=== PATIENT | male | born 1960 | race Caucasian/White ===

== ENCOUNTER → 2023-07-12 | Outpatient (CLI) | payer MEDICARE, OTHER, SELFPAY ==
[2023-07-12 16:19] LABS: Absolute Lymphocyte Count 2.01 X10^3/uL (0.83-4.51); Absolute Neutrophil Count 5.1 X10^3/uL (2.0-7.7); Basophil# 0.07 X10^3/uL; Basophil% 0.9 % (0-1); Eosinophil# 0.09 X10^3/uL; Eosinophils% 1.1 % (0-5); Hematocrit 44.8 % (40-54); Hemoglobin 14.6 g/dL (13.0-16.5); Lymphocyte # 2.01 X10^3/ul (0.83-4.51); Lymphocyte % 25.5 % (19-41); Mean Corp Hgb Conc 32.6 g/dL (32-36); Mean Corpuscular Hgb 28.1 pg (27.0-32.0); Mean Corpuscular Volume 86.2 fL (80-94); Mean Platelet Vol. 10.3 fl (6.2-12.0); Monocyte# 0.55 X10^3/uL; NRBC Flagged by Analyzer 0 % (0-5); Neutrophil # 5.12 X10^3/uL (2.7-7.7); Platelet Count 263 K/mm3 (150-450); RBC Distribution Width SD 40.3 fl (35.1-43.9); White Blood Count 7.9 K/mm3 (4.4-11.0)
[2023-07-12 17:15] LABS: AST(SGOT) 15 U/L (15-37); Alanine Aminotransfer ALT/SGPT 26 U/L (16-61); Albumin, Serum 3.9 g/dL (3.2-5.0); Alkaline Phosphatase 76 U/L (45-117); Anion Gap 3 (5-15); BUN 21 mg/dL (7-18); BUN/Creat Ratio 17.9 RATIO (10-20); Bilirubin, Direct 0.12 mg/dL (0.00-0.30); Calcium,Total 9.5 mg/dL (8.5-10.1); Chloride 108 mmol/L (98-107); Cholesterol 207 mg/dL (200); Creatinine, Serum 1.17 mg/dL (0.70-1.30); EST Glomerular Filtration Rate 67 mL/min (>60); Est Glom Filt Rate - Afr Amer 81 mL/min (>60); Globulin 3.3 g/dL (2.2-4.2); Glucose 105 mg/dL (74-106); High Density Lipoprotein 64 mg/dL; Magnesium 2.4 mg/dL (1.6-2.6); Potassium 4.6 mmol/L (3.5-5.1); Protein, Total 7.2 g/dL (6.4-8.2); Sodium Level 139 mmol/L (136-145); Thyroid Stim Hormone (TSH) 1.07 uIU/mL (0.358-3.74); Triglycerides 185 mg/dL; Very Low Density Lipoprotein 37 mg/dL (5-40)
== END | disposition home or self-care (01) ==
PROVIDERS: PCP Internal Medicine; Referring Provider Internal Medicine Cardiovascular Disease; Visit Provider Internal Medicine Cardiovascular Disease
DX: I48.91 Unspecified atrial fibrillation (principal); N52.9 Male erectile dysfunction, unspecified; R00.2 Palpitations
CPT/HCPCS: 36415; 80048; 80061; 80076; 83735; 84443; 85025

== ENCOUNTER → 2023-07-21 | Outpatient (CLI) | payer MEDICARE, OTHER, SELFPAY ==
--- NOTE | 2023-07-21 10:53 | ECHOD_ITS ---
Reason For Study: Afib Procedure This was a 2D Doppler, Color Flow transthoracic echocardiogram. Exam performed in department. Left Ventricle Normal LV size. Left ventricular systolic function is normal. The estimated ejection fraction is 65 %. No regional wall motion abnormalities noted. Right Ventricle Normal RV size. Normal systolic function. Atria Normal left atrium. Normal right atrium. Mitral Valve Normal mitral valve. Mild (1+) eccentric mitral valve insufficiency. Tricuspid Valve Normal tricuspid valve. Mild to moderate (1-2+) tricuspid valve insufficiency. Pulmonary artery systolic pressure is 34 mmHg. Aortic Valve Trisinus/trileaflet aortic valve. Moderate focal aortic valve thickening. Peak aortic valve gradient 43 mmHg. Mean aortic valve gradient 29 mmHg. Mild to moderate aortic stenosis. Pulmonic Valve Normal pulmonic valve. Great Vessels Normal aortic root. The pulmonary artery is normal size. Normal inferior vena cava. Pericardium/Pleural No pericardial effusion. MMode/2D Measurements & Calculations LVIDd: 5.5 cm IVSd: 1.0 cm LVOT diam: 2.8 cm LVIDs: 3.8 cm LVPWd: 1.0 cm LVOT area: 6.0 cm2 RVDd: 3.6 cm FS: 30.2 % Ao root diam: 3.8 cm LAV(MOD-bp): 41.6 ml LVAd ap4: 35.1 cm2 LAV(MOD-bp) Indexed: 19.3 ml/m2 LVLd ap4: 8.3 cm LAV(MOD-sp2): 42.0 ml EDV(MOD-sp4): 121.6 ml LAV(MOD-sp4): 40.4 ml EDV(sp4-el): 125.6 ml LVAs ap4: 19.4 cm2 LVLs ap4: 7.3 cm ESV(MOD-sp4): 44.5 ml ESV(sp4-el): 44.1 ml EF(MOD-sp4): 63.4 % EF(sp4-el): 64.9 % SV(MOD-sp4): 77.1 ml SV(sp4-el): 81.5 ml LA A4 area: 16.4 cm2 LA dimension(2D): 3.9 cm RA A4 area: 12.6 cm2 TAPSE: 2.1 cm Time Measurements MV dec time: 0.21 sec Doppler Measurements & Calculations MV E max julio: 77.7 cm/sec Lat Peak E' Julio: 8.3 cm/sec Med Peak E' Julio: 6.9 cm/sec MV A max julio: 57.2 cm/sec E/E' lat: 9.3 E/E' med: 11.2 MV E/A: 1.4 Ao V2 max: 328.2 cm/sec LV V1 max: 81.4 cm/sec MV dec slope: 375.3 cm/sec2 Ao max P.1 mmHg LV V1 max P.7 mmHg Ao V2 mean: 264.5 cm/sec LV V1 mean P.6 mmHg Ao mean P.1 mmHg LV V1 mean: 60.3 cm/sec Ao V2 VTI: 87.6 cm LV V1 VTI: 21.8 cm AV (velocity ratio): 0.25 KIANA(I,D): 1.5 cm2 KIANA(V,D): 1.5 cm2 SV(LVOT): 130.3 ml PA V2 max: 89.8 cm/sec PI end-d julio: 116.3 cm/sec TR max julio: 271.4 cm/sec TR max P.5 mmHg ECHO/Echo Complete Interpretation Summary Normal LV size. Left ventricular systolic function is normal. The estimated ejection fraction is 65 %. Moderate focal aortic valve thickening. Mean aortic valve gradient 29 mmHg. Peak aortic valve gradient 43 mmHg. Mild to moderate aortic stenosis. Ordering Physician: Marquis Bolanos Referring Physician: Pramod Jeff Performed By: Hayley Correa, RDCS, RVT
== END | disposition home or self-care (01) ==
LOC: CVS 10:52
PROVIDERS: PCP Internal Medicine; Referring Provider Internal Medicine Cardiovascular Disease; Visit Provider Internal Medicine Cardiovascular Disease
DX: R00.2 Palpitations (principal)
CPT/HCPCS: 93306

== ENCOUNTER → 2023-08-21 | Outpatient (CLI) | payer MEDICARE, OTHER, SELFPAY ==
--- NOTE | 2023-08-21 08:28 | CDU_ITS ---
Reason For Study: Carotid bruit Rt. Velocities/BP Lt. Velocities/BP Prox CCA 98.1/16.8 cm/sec. Prox CCA 89.4/14.6 cm/sec. Mid CCA 75.1/14.6 cm/sec. Mid CCA 75.1/14.6 cm/sec. Dist CCA 74/14.6 cm/sec. Dist CCA 69.6/13.5 cm/sec. Prox ICA 47.6/10.2 cm/sec. Prox ICA 50.9/13.5 cm/sec. Mid ICA 63/14.6 cm/sec. Mid ICA 93.8/25.6 cm/sec. Dist ICA 77.3/21.2 cm/sec. Dist ICA 78.4/21.2 cm/sec. Rt. ICA/CCA = 1.03. Lt. ICA/CCA = 1.25. Prox ECA 53.1/5.8 cm/sec. Prox ECA 64.1/4.7 cm/sec. Rt. Vert. 79.8/11.3 cm/sec. Lt. Vert. 44.3/12.4 cm/sec. Right Extracranial There is intimal thickening but no significant atherosclerotic plaque noted in the right common carotid artery. There is homogeneous, smooth atherosclerotic plaque noted in the right internal carotid artery. There is heterogeneous, irregular atherosclerotic plaque noted in the right external carotid artery. Antegrade flow is noted in the right vertebral artery. Left Extracranial There is homogeneous, smooth atherosclerotic plaque noted in the left common carotid artery. There is homogeneous, smooth atherosclerotic plaque noted in the left internal carotid artery. There is intimal thickening but no significant atherosclerotic plaque noted in the left external carotid artery. Antegrade flow is noted in the left vertebral artery. Procedure Carotid Duplex 13176. This is a Carotid Duplex examination using B-mode, color flow and specral Doppler. Exam performed in department. VL/Carotid Duplex Ultrasound Interpretation Summary Minimal smooth plaque bilateral internal carotid arteries with less than 50% st enosis Less than 50% stenosis bilateral external carotid arteries Patent antegrade vertebral arteries bilaterally Ordering Physician: Pramod Ponce Referring Physician: Pramod Ponce Performed By: Cristina Srinivasan RVT
== END | disposition home or self-care (01) ==
LOC: CVS 08:26
PROVIDERS: PCP Internal Medicine; Visit Provider Internal Medicine
DX: R09.89 Other specified symptoms and signs involving the circulatory and respiratory systems (principal)
CPT/HCPCS: 93880

== ENCOUNTER 2023-10-05 12:11 | Emergency (ER) | payer MEDICARE, OTHER, SELFPAY ==
[2023-10-05 12:13] VITALS: BP 129/73; PULSE 160; RESP 14; TEMP 36.5; O2SAT 98; BMI 28.4
--- NOTE | 2023-10-05 12:17 | EKG12_ITS ---
Test Reason : DYSRHYTHMIA Blood Pressure : / mmHG Vent. Rate : 162 BPM Atrial Rate : 000 BPM P-R Int : 000 ms QRS Dur : 086 ms QT Int : 292 ms P-R-T Axes : 000 012 021 degrees QTc Int : 479 ms Critical Test Result: High HR Supraventricular tachycardia Nonspecific ST abnormality Abnormal ECG Confirmed by NAIMA OCONNELL, SUPA ([id number]), web content editor OLI SANCHEZ ([id number]) on 10/06/2023 9:36:25 AM Referred By: Confirmed By:SUPA MCNAMARA MD
--- NOTE | 2023-10-05 12:17 | RAD_ITS ---
STUDY: X-RAY CHEST REASON FOR EXAM: Male, 63 years old. Weakness. History of aortic stenosis. TECHNIQUE: Frontal view of the chest COMPARISON: None. FINDINGS: The lungs are clear. There are no pleural effusions. There is no pneumothorax. The heart is normal in size. The visualized osseous structures are within normal limits. RAD/Chest 1 View (Portable) IMPRESSION: No acute thoracic pathology. Electronically Signed: Marquise Mc MD at 13:38 EDT ,
--- NOTE | 2023-10-05 12:17 | CT_ITS ---
STUDY: CTA HEAD AND NECK WITH CONTRAST REASON FOR EXAM: Male, 63 years old. aphasia RADIATION DOSAGE (If Supplied By Facility): CTDIvol = ( 32.35 ) mGy, DLP = ( 1568.84 ) mGycm TECHNIQUE: CT angiography was performed with a multi-detector CT scanner. Data acquisition was obtained from the skull base through the vertex following intravenous administration of [id number] 100ML. MIP images were reconstructed from the axial data set. Post-processing of the angiographic images was performed, with multiplanar reformation and 3D reconstruction. Individualized dose optimization techniques were used for this CT. COMPARISON: No relevant priors. FINDINGS: Normal bilateral petrous carotid arteries. Normal right cavernous carotid artery with a normal supraclinoid bifurcation. Normal left cavernous carotid artery with a normal supraclinoid bifurcation. Normal right A1 segments of the anterior cerebral artery. Normal left A1 segments of the anterior cerebral artery. Normal intact anterior communicating artery (ACOM). Normal bilateral A2 segments of the anterior cerebral arteries. Normal right M1 and M2 segments of the middle cerebral arteries, with a normal M1 bifurcation. Normal left M1 and M2 segments of the middle cerebral arteries, with a normal M1 bifurcation. Normal right posterior communicating artery (PCOM). Normal left posterior communicating artery (PCOM). Normal bilateral vertebral arteries. Normal basilar artery with a normal basilar bifurcation. The visualized bilateral superior cerebellar (SCA) arteries are normal. Normal bilateral P1, P2 and visualized P3 segments of the posterior cerebral arteries. There is no demonstrated aneurysm of the north fork of Ruggiero. There is no demonstrated abnormality of the visualized brain. AORTIC ARCH: Normal visualized aortic arch. Normal origins of the brachiocephalic, left common carotid, and left subclavian arteries. RIGHT CAROTID ARTERIES: Normal right common carotid artery (CCA). Normal right common carotid bulb. Normal origin of the right internal carotid (ICA) artery without a hemodynamically significant stenosis. Normal visualized cervical portion of the right internal carotid artery. Normal origin of the right external carotid artery (ECA). LEFT CAROTID ARTERIES: Normal left common carotid artery (CCA). Normal left common carotid bulb. Normal origin of the left internal carotid (ICA) artery without a hemodynamically significant stenosis. Normal visualized cervical portion of the left internal carotid artery. Normal origin of the left external carotid artery (ECA). VERTEBRAL ARTERIES: Normal bilateral vertebral arteries. No suspicious enhancing lesion, airway narrowing or deviation. Multiple thyroid nodules are noted, dedicated thyroid ultrasound recommended unless recently performed. Lung apices are clear CT/CTA Head AND Neck W/ Contrast IMPRESSION: Normal CTA Head and neck with contrast. Thyroid nodules Electronically Signed: Jose Dasilva MD at 13:25 EDT ,
[2023-10-05] MEDS: Metoprolol Tartrate 5 MG/5 ML Vial IV (12:26)
[2023-10-05] MEDS: 0.9% Normal Saline (1000mL) 1,000 ML 250 ML IV (12:26)
[2023-10-05 12:27] LABS: Absolute Lymphocyte Count 2.33 X10^3/uL (0.83-4.51); Absolute Neutrophil Count 8.5 X10^3/uL (2.0-7.7); Basophil# 0.08 X10^3/uL; Basophil% 0.7 % (0-1); Eosinophil# 0.06 X10^3/uL; Eosinophils% 0.5 % (0-5); Hematocrit 45.3 % (40-54); Hemoglobin 14.9 g/dL (13.0-16.5); Lymphocyte # 2.33 X10^3/ul (0.83-4.51); Lymphocyte % 19.4 % (19-41); Mean Corp Hgb Conc 32.9 g/dL (32-36); Mean Corpuscular Volume 85.2 fL (80-94); Mean Platelet Vol. 10.2 fl (6.2-12.0); Monocyte# 0.93 X10^3/uL; Monocyte% 7.8 % (0-10); NRBC Flagged by Analyzer 0 % (0-5); Neutrophil # 8.52 X10^3/uL (2.7-7.7); Neutrophil % 71.1 % (47-70); Platelet Count 224 K/mm3 (150-450); RBC Distribution Width SD 40.3 fl (35.1-43.9); Red Blood Count 5.32 M/mm3 (4.6-6.2)
--- NOTE | 2023-10-05 12:31 | EKG12_ITS ---
Test Reason : CONVERTED RHYTHM Blood Pressure : / mmHG Vent. Rate : 067 BPM Atrial Rate : 067 BPM P-R Int : 170 ms QRS Dur : 084 ms QT Int : 386 ms P-R-T Axes : 049 015 027 degrees QTc Int : 407 ms Normal sinus rhythm Normal ECG Confirmed by SUPA MCNAMARA MD ([id number]), digital editor OLI SANCHEZ ([id number]) on 10/06/2023 9:36:35 AM Referred By: JEFFERY Confirmed By:SUPA MCNAMARA MD
--- NOTE | 2023-10-05 12:34 | EX.ED.DYSGE1 ---
HPI History of Present Illness Chief Complaint: Neuro S/Sx Informant: patient and spouse/S.O. Narrative Narrative: 63-year-old male presenting to the emergency room stating I am having a stroke. He states symptoms began in the last 30 minutes. He states that he is having difficulty finding his words and saying them. Patient repeats over and over that he is having a stroke. Patient states that he was recently diagnosed with atrial fibrillation and moderate aortic stenosis. He has not had Eliquis in the past month. He states that he takes Eliquis and metoprolol on an as-needed basis. Patient denies any arm or leg symptoms. No vision changes. No facial droop. No loss of sensation. He states that he is supposed to have shoulder surgery tomorrow at [facility]. He states that he is not normally in atrial fibrillation but knows when he is in it (however he appears to be in atrial fibrillation now and does not feel it). PFSH PFS Medical History Health care maintenance Left carotid bruit Aortic stenosis Palpitations Osteoarthritis Onychomycosis Genital herpes Erectile dysfunction Home Medications ?Medication ?Instructions ?Recorded ?Last Taken ?Type metoprolol tartrate 25 mg tablet 12.5 mg (1/2 x 25 mg) PO BID #30 10/05/23 Unknown Rx tabs Allergy/AdvReac Type Severity Reaction Status Date / Time No Known Allergies Allergy Unverified 09/21/23 14:16 Family History Father Heart disease CHF (congestive heart failure) Surgical History H/O vasectomy History of amputation of finger Hx of appendectomy Social History adopted: No household members: none number of children: 4 current occupational status: retired pets and animals: Yes Smoking Status: Former smoker quit date: 04/03/79 Tobacco: How many years used: 8 alcohol intake: never substance use type: does not use caffeine: Yes (4) Type: coffee frequency: 5-6 times per week seatbelt use: always do you feel safe at home: Yes ROS ROS ED Constitutional Constitutional ED: Denies chills, fever(s) or weight loss Eyes Eyes: Denies blurry vision, change in vision or diplopia ENT ENT ED: Denies ear pain, rhinorrhea or sore throat Cardiovascular Cardiovascular: Denies chest pain, orthopnea, palpitations or racing heartbeat Respiratory/Chest Respiratory/Chest: Denies cough, dyspnea or orthopnea Gastrointestinal Gastrointestinal: Denies abdominal pain, diarrhea, nausea or vomiting Genitourinary Genitourinary ED: Denies dysuria, hematuria or urinary frequency Musculoskeletal Musculoskeletal: Reports arthralgias; Denies myalgias or neck pain Integumentary Denies abscess or rash Neurologic Neurologic: Reports other Details: Difficulty saying words I know what I want to say but it does not come out ; Denies headache(s), paresthesias or weakness Psychiatric Psychiatric: Denies anxiety, depression, suicidal ideation or suicidal thoughts Endocrine Endocrinology: Denies polydipsia, polyphagia or polyuria Allergic/Immunologic Allergic/Immunologic ED: Denies mouth swelling, tongue swelling or urticaria EXAM Physical Exam Const Vital Signs: 10/05/23 12:13 10/05/23 13:12 10/05/23 14:00 Temperature 97.7 F L Temperature Source Temporal Pulse Rate 160 H 66 63 Respiratory Rate 14 16 19 H Blood Pressure 129/73 H 112/72 116/71 Blood Pressure Mean 91 85 86 Pulse Ox 98 98 97 Oxygen Delivery Method Room Air Room Air Positive well nourished and well developed General Appearance ED: well developed HEENT Reports normocephalic, head/scalp atraumatic and moist mucous membranes Eyes PERRL and EOMs intact bilaterally Neck no lymphadenopathy, supple and no JVD Resp normal respiratory effort and clear to auscultation bilaterally Cardio regular rate and no murmurs Rate: tachycardic Rhythm: abnormal rhythm irregularly irregular GI normal to inspection, nondistended, normoactive bowel sounds and non-tender Palpation: soft Back/Spine no CVA tenderness and normal ROM Extremity normal to inspection General Extremety ED: Negative for edema General Extremity: Negative for edema Neuro oriented x3 and CN's II-XII intact bilaterally Sensorium / Orientation: alert Motor Exam: strength 5/5 throughout Psych mental status grossly normal Mood & Affect: Negative for depressed or tearful Skin no rashes or lesions noted and no wounds MDM MDM MDM Narrative Medical decision making narrative: Differential diagnosis includes but not limited to stroke TIA brain mass intracranial hemorrhage anxiety cardiac dysrhythmias electrolyte imbalance I was asked to emergently evaluate this patient while seeing another patient. The concern was what the patient was stating was that he was having a stroke. Initial NIH is 0. I can understand the patient though he stumbles over a couple words here and there. He has no difficulty on the aphasia NIH part or any dysarthria noted. Therefore with an initial NIH of 0 and no obvious stroke syndrome, I did not call a stroke team. Initial EKG shows a supraventricular tachycardia at a rate of 162 bpm. On the monitor he is showing variability between 150 and about 175. CTA head and neck is negative for acute findings. Patient is neurologically at his baseline. White count returns nonspecifically at 12 hemoglobin 14.9 platelet count of 224 creatinine 1.4 with a BUN of 22. Glucose 152. Troponin normal at 28. My independent interpretation of the chest x-ray is no acute process. Patient after 5 mg of metoprolol IV has been in a normal sinus rhythm. Again he is at neurologic baseline per him. If this was a TIA then clearly the high risk source would be his A-fib for which she is not anticoagulated. I spoke with Dr. Rosado from cardiology. Our recommendation is that he begin Eliquis. He tells me that his doctors took him off of metoprolol for having heart rates in the 40s. At that is not what I was understanding as the reason to why he was not on the metoprolol at this time. I do not feel strongly that he necessarily has to be hospitalized. His symptoms have resolved. He had recent echocardiogram carotid ultrasound CT a of head and neck and laboratory analysis. I think he needs to be anticoagulated and that is what he would be discharged from the hospital for if he had an essentially negative workup. I have encouraged him to speak with his anesthesiologist and surgeon. I do not feel that it is in his best interest to proceed with a significant surgery tomorrow. History & Record Review Discussion w/independent historian: Patient and Significant other Additional record(s) reviewed:: Prior outpatient record, Prior ED visit and Prior labs Lab Data Attestation: I reviewed the patient's lab results. Labs: Laboratory Results - last 24 hr 10/05/23 10/05/23 12:15 12:18 WBC 12.0 H RBC 5.32 Hgb 14.9 Hct 45.3 MCV 85.2 MCH 28.0 MCHC 32.9 RDW Std Deviation 40.3 RDW Coeff of Fabian 13.0 Plt Count 224 MPV 10.2 Immature Gran % (Auto) 0.500 Neut % (Auto) 71.1 H Lymph % (Auto) 19.4 Jennings % (Auto) 7.8 Eos % (Auto) 0.5 Baso % (Auto) 0.7 Absolute Neuts (auto) 8.5 H Absolute Lymphs (auto) 2.33 Nucleated RBC % 0 PT 13.1 INR 1.0 APTT 27.0 Sodium 139 Potassium 4.3 Chloride 106 Carbon Dioxide 24.0 Anion Gap 9 BUN 22 H Creatinine 1.40 H Estim Creat Clear Calc 63.01 Est GFR (MDRD) Af Amer 65 Est GFR (MDRD) Non-Af 54 L BUN/Creatinine Ratio 15.7 Glucose 152 H Calcium 9.7 Total Bilirubin 0.60 Direct Bilirubin 0.14 AST 15 ALT 19 Alkaline Phosphatase 85 Troponin I High Sens 28 Total Protein 7.4 Albumin 3.8 Globulin 3.6 POC Glucose 161 H Radiography Diagnostic Testing: Clinical Impression(s) from Imaging Studies Chest X-Ray 10/05/23 12:17 IMPRESSION: No acute thoracic pathology. Electronically Signed: Marquise Mc MD at 13:38 EDT , Head/Neck CTA 10/05/23 12:17 IMPRESSION: Normal CTA Head and neck with contrast. Thyroid nodules Electronically Signed: Jose Dasilva MD at 13:25 EDT , EKG Initial EKG: Attestation: I personally reviewed and interpreted this EKG as follows: Comments: Supraventricular tachycardia at a rate of 162 bpm. Follow-up EKG: Attestation: I personally reviewed and interpreted this EKG as follows: Comments: Sinus rhythm ventricular rate of 67 bpm. Management Discussion w/another healthcare provider: [facility] (Dr. Bolanos) Discharge Plan Triage Chief Complaint: Neuro S/Sx ED Provider: Jesus Peace Dx/Rx/DC Orders Clinical Impression: Brain TIA, Aortic stenosis, Atrial fibrillation with RVR Instructions: ED AFIB, ED TIA: Transient Ischemic Attack Prescriptions: New metoprolol tartrate 25 mg tablet 12.5 mg PO BID Qty: 30 0RF Primary Care Provider: Pramod Ponce Referrals: Marquis Bolanos MD [Med Staff - Active Staff] - As soon as possible Pramod Ponce MD [Primary Care Provider] - As soon as possible Activity Restrictions/Additional Instructions: It is strongly recommended that you be on Eliquis until your doctors removes the medication I would recommend metoprolol 12.5 mg twice a day. If you are finding that your heart rate is significantly slow on this medication please discuss it with your doctor. I strongly urged you to speak with your surgeon and anesthesiologist before tomorrow surgery regarding this. If this was a TIA today there is a high likelihood of a much larger debilitating stroke in the next 30 days. Clearly the risk factor for a stroke for you would be atrial fibrillation. This is why Eliquis would be important for you is to prevent a large stroke. I would also recommend taking an aspirin 81mg (baby aspirin) a day until cardiology ask you to discontinue this. Print Language: Persian Disposition Disposition: Home, Self Care NIHSS NIHSS 1a. Level of Consciousness: Alert; keenly responsive 1b. LOC Questions: Answers BOTH questions correctly. 1c. LOC Commands: Performs both tasks correctly. 2. Best Gaze: Normal 3. Visual: No visual loss 4. Facial Palsy: Normal symmetrical movements 5a. Left Arm: No drift; arm holds 90 (or 45) degrees for full 10 seconds 5b. Right Arm: No drift; arm holds 90 (or 45) degrees for full 10 seconds 6a. Left Leg: No drift; leg holds 30-degree position for full 5 seconds 6b. Right Leg: No drift; leg holds 30-degree position for full 5 seconds 7. Limb Ataxia: Absent 8. Sensory: Normal; no sensory loss 9. Best Language: No aphasia; normal 10. Dysarthria: Normal 11. Extinction and Inattention: No abnormality Total: 0
[2023-10-05 12:36] LABS: Prothrombin Time (Protime)PT. 13.1 SECONDS (11.7-14.9)
[2023-10-05 12:37] LABS: Bedside Glucose 161 mg/dL (74-106)
[2023-10-05 12:47] LABS: AST(SGOT) 15 U/L (15-37); Alanine Aminotransfer ALT/SGPT 19 U/L (16-61); Albumin, Serum 3.8 g/dL (3.2-5.0); Alkaline Phosphatase 85 U/L (45-117); Anion Gap 9 (5-15); BUN 22 mg/dL (7-18); BUN/Creat Ratio 15.7 RATIO (10-20); Bilirubin, Direct 0.14 mg/dL (0.00-0.30); Calcium,Total 9.7 mg/dL (8.5-10.1); Chloride 106 mmol/L (98-107); EST Glomerular Filtration Rate 54 mL/min (>60); Est Glom Filt Rate - Afr Amer 65 mL/min (>60); Estimated Creatinine Clearance 63.01 ml/min; Globulin 3.6 g/dL (2.2-4.2); Glucose 152 mg/dL (74-106); Potassium 4.3 mmol/L (3.5-5.1); Protein, Total 7.4 g/dL (6.4-8.2); Sodium Level 139 mmol/L (136-145); Troponin-I HS 28 pg/mL (3.0-78.0)
[2023-10-05 13:12] VITALS: BP 112/72; PULSE 66; RESP 16; O2SAT 98
[2023-10-05 14:00] VITALS: BP 116/71; PULSE 63; RESP 19; O2SAT 97
[2023-10-05 14:34] VITALS: BP 120/76; PULSE 77; RESP 16; TEMP 36.8; O2SAT 99
== END 2023-10-05 14:35 | disposition home or self-care (01) ==
PROVIDERS: Emergency Provider Emergency Medicine; PCP Internal Medicine; Visit Provider Emergency Medicine
DX: G45.9 Transient cerebral ischemic attack, unspecified (principal); I48.91 Unspecified atrial fibrillation; I35.0 Nonrheumatic aortic (valve) stenosis; Z79.01 Long term (current) use of anticoagulants; Z87.891 Personal history of nicotine dependence; R94.31 Abnormal electrocardiogram [ECG] [EKG]; R47.01 Aphasia; R53.1 Weakness
CPT/HCPCS: 70496; 70498; 71045; 80048; 80076; 82962; 84484; 85025; 85610; 85730; 93005; 96361; 96374; 99284; J7030; Q9967

== ENCOUNTER → 2023-11-08 | Outpatient (CLI) | payer MEDICARE, OTHER, SELFPAY ==
--- NOTE | 2023-11-08 11:40 | STRESSREP ---
Stress Test Report Exercise myocardial perfusion stress test. 63-year-old man with a history of paroxysmal atrial fibrillation Stress protocol: Resting EKG demonstrates sinus bradycardia with a rate of 52 bpm resting blood pressure is 128/78 mmHg. The patient exercised according to the regular Erick protocol for a total duration of 10 minutes and 15 seconds attaining a maximum heart rate of 123 bpm which was 79% of maximum predicted heart rate; the maximum workload was 13.4 metabolic equivalents. At rest there were no ST or T wave changes noted to suggest ischemia and at peak exercise upsloping ST changes only were noted which did not meet the criteria for ischemia. No clinical angina was noted the test was terminated due to the target heart rate being achieved/fatigue. The peak blood pressure was 160/74 mmHg. Rate-pressure product was 18,700. No atrial fibrillation was noted Myocardial perfusion protocol. 13.4 mCi of technetium 99m sestamibi was injected at rest. The patient exercised according to regular Erick protocol for total duration of 10 minutes and 15 seconds and at peak exercise 41 mCi of technetium 99m sestamibi was injected stress images were obtained stress and rest images were reconstructed in comparing the short axis vertical long and horizontal long axis. Gated images were also obtained. Perfusion SPECT analysis: Review of the stress images demonstrate normal uptake of tracer noted in all areas of the myocardium. The resting images similarly demonstrate normal uptake of tracer noted in all areas of the myocardium. No areas of reversibility are noted to suggest ischemia no previous infarct was noted. Gated SPECT analysis: The gated ejection fraction is 64%. Conclusion: Normal exercise myocardial perfusion stress test at a high workload Preserved ejection fraction.
== END | disposition home or self-care (01) ==
PROVIDERS: PCP Internal Medicine; Referring Provider Nurse Practitioner Family; Visit Provider Nurse Practitioner Family
DX: R94.31 Abnormal electrocardiogram [ECG] [EKG] (principal); I48.0 Paroxysmal atrial fibrillation; I35.0 Nonrheumatic aortic (valve) stenosis; R00.2 Palpitations
CPT/HCPCS: 78452; 93017; A9500; A4216

== ENCOUNTER 2023-12-06 12:55 | Observation (INO) | payer MEDICARE, OTHER, SELFPAY ==
[2023-12-06] VITALS (10 sets, daily range): BP systolic 110–132; BP diastolic 59–85; PULSE 60–155; RESP 15–27; TEMP 36.4–36.7; O2SAT 95–100; BMI 31.6; BMI 27.7
--- NOTE | 2023-12-06 13:00 | EKG12_ITS ---
Test Reason : Blood Pressure : / mmHG Vent. Rate : 080 BPM Atrial Rate : 080 BPM P-R Int : 182 ms QRS Dur : 090 ms QT Int : 386 ms P-R-T Axes : 046 -05 010 degrees QTc Int : 445 ms Normal sinus rhythm Normal ECG Confirmed by NAIMA OCONNELL, SUPA ([id number]), multimedia editor OLI SANCHEZ ([id number]) on 12/07/2023 1:49:16 PM Referred By: Confirmed By:SUPA MCNAMARA MD
--- NOTE | 2023-12-06 13:00 | CT_ITS ---
STUDY: CT HEAD STROKE PROTOCOL W/O CONTRAST INJECTION REASON FOR EXAM: Male, 63 years old. Neuro deficit, acute, stroke suspected RADIATION DOSAGE (If Supplied By Facility): CTDIvol = ( 44.99 ) mGy, DLP = ( 812.98 ) mGycm TECHNIQUE: Transaxial CT imaging of the brain was performed without administration of intravenous contrast material. Individualized dose optimization techniques were used for this CT. COMPARISON: Comparison is made with prior study dated October 05, 2023. FINDINGS: Normal soft tissue structures. Normal calvarium. There is mild cerebral atrophy with widening of the extra-axial spaces and ventricular dilatation. Normal white matter tracts of the cerebral hemispheres. Normal basal ganglia and thalami. Normal brainstem. Normal cerebellum. There is no intracranial hemorrhage. There are no findings of an acute ischemic infarction. Normal visualized paranasal sinuses. ASPECT score: 10 CT/STROKE Brain/Head without Cont IMPRESSION: Chronic involutional changes of the brain. N.B. : The above Results were Read Back by Gregory Love MD to Dany Hooker and understanding confirmed on 12/06/2023 13:10:56 (ET). Electronically Signed: Gregory Love MD at 13:12 EDT ,
--- NOTE | 2023-12-06 13:00 | RAD_ITS ---
STUDY: X-RAY CHEST REASON FOR EXAM: Male, 63 years old. Neuro deficit, acute, stroke suspected TECHNIQUE: Single AP portable view of the chest. COMPARISON: Comparison is made with prior study dated October 05, 2023. FINDINGS: EKG electrodes are seen. The lungs are clear and expanded. There is no demonstrated pleural abnormality. Normal size heart. Normal mediastinum and ninfa. Normal visualized pulmonary arteries. There is atherosclerotic tortuosity of the aortic arch and descending thoracic aorta. There are diffuse degenerative changes of the visualized thoracic spine. There is degenerative osteoarthritis of the bilateral shoulders. There is no demonstrated abnormality of the visualized soft tissue structures of the upper abdomen. RAD/Chest 1 View IMPRESSION: No acute abnormality is seen. Electronically Signed: Gregory Love MD at 13:51 EDT ,
--- NOTE | 2023-12-06 13:01 | ED.VIS.STROK ---
HPI History of Present Illness Chief Complaint: Stroke Alert Informant: patient Onset/Context/Timing Onset: Today Context: Sudden Onset Timing: Continuous Quality and Location: Positive for Expressive Aphasia Onset: Approximately 12:30 PM. Current Severity: Moderate Maximum Severity: Moderate Associated Symptoms Associated Symptoms: Negative for Headache, Nausea, Vomiting or Chest Pain Narrative Narrative: 63-year-old male history of prior TIA and CVA. History of A-fib on Eliquis. He takes Eliquis 5 mg twice daily and he took his last dose this morning. Around 1230 while working in his shop at home he started to have an an expressive aphasia. Denies any other symptoms. No recent illness. Prior similar symptoms: Yes Recent Illness/Hospitalization: No PFSH PFS Medical History Abnormal EKG Health care maintenance Left carotid bruit Aortic stenosis Palpitations Osteoarthritis Onychomycosis Genital herpes Erectile dysfunction Home Medications ?Medication ?Instructions ?Recorded ?Last Taken ?Type metoprolol tartrate 25 mg tablet 12.5 mg (1/2 x 25 mg) PO BID #30 10/05/23 Unknown Rx tabs apixaban 5 mg tablet (Eliquis) 5 mg PO BID #180 tabs 10/24/23 Unknown Rx metoprolol tartrate 25 mg tablet 12.5 mg (1/2 x 25 mg) PO BID 30 12/06/23 Unknown Rx days #30 tabs Allergy/AdvReac Type Severity Reaction Status Date / Time No Known Allergies Allergy Verified 12/06/23 12:59 Family History Father Heart disease CHF (congestive heart failure) Surgical History H/O vasectomy History of amputation of finger Hx of appendectomy Social History adopted: No household members: none number of children: 4 current occupational status: retired pets and animals: Yes Smoking Status: Former smoker quit date: 04/03/79 Tobacco: How many years used: 8 alcohol intake: never substance use type: does not use caffeine: Yes (4) Type: coffee frequency: 5-6 times per week seatbelt use: always do you feel safe at home: Yes ROS ROS ED ROS Narrative Expressive aphasia. Denies recent illness. No headache. Constitutional Constitutional ED: Denies chills or fever(s) Eyes Eyes: Denies blurry vision ENT ENT ED: Denies ear pain Cardiovascular Cardiovascular: Reports palpitations and racing heartbeat; Denies chest pain Respiratory/Chest Respiratory/Chest: Denies cough or dyspnea Gastrointestinal Gastrointestinal: Denies abdominal pain Genitourinary Genitourinary ED: Denies dysuria Musculoskeletal Musculoskeletal: Denies arthralgias Integumentary Denies abscess Neurologic Neurologic: Denies headache(s) Psychiatric Psychiatric: Denies anxiety or depression Endocrine Endocrinology: Denies polydipsia Hematologic/Lymphatic Hematologic/Lymphatic: Reports easy bleeding and other Details: On the blood thinner Eliquis. Allergic/Immunologic Allergic/Immunologic ED: Denies mouth swelling or urticaria EXAM Physical Exam Narrative Exam Narrative: 63-year-old male sitting upright in bed. On the monitor he is either in A-fib or a flutter rate about 155. Initial blood pressure 132/85. Pulse ox 9 9% on room air no hypoxia. Blood sugar 130. H EENT exam pupils round reactive light. No facial droop. Normal pronunciation. He does have expressive aphasia. Trouble finding the correct words. Neck nontender. Lungs clear. Heart tachycardic rate about 155. Mostly to fib flutter on the monitor. No murmur. Chest wall ribs nontender. Abdomen soft nontender. Moving all 4 extremities. 5 out of 5 knit goods washer strength. Dorsi plantarflexion intact. No drift. No edema. Nontender. Back nontender. Neurologically expressive aphasia. He is easily understood. He is pronouncing the words correctly. He just cannot put together sentences appropriately. He is awake. He is alert. He is answering questions following commands. He has normal motor strength. Normal fingertip to nose. NIH score is 1. Patient doing well on repeat exam at 2:15 PM. After he returned from [facility] did been in and their neurologist did there on exam. Agrees due to the patient being on Eliquis he is not a TNK candidate. His speech is improving. Again he is now in a sinus rhythm he spontaneously converted from A-fib RVR to spontaneous rhythm. Patient is doing well. Speech appears to be improving. I spoken to our hospitalist he will be PCU admit for stroke evaluation. Const Vital Signs: 12/06/23 12:56 12/06/23 12:59 12/06/23 13:03 Temperature 97.5 F L 97.5 F L Temperature Source Temporal Temporal Pulse Rate 155 H 155 H Respiratory Rate 27 H 19 H Blood Pressure 132/85 H 132/85 H Blood Pressure Mean 100 100 Pulse Ox 99 100 Oxygen Delivery Method Room Air Room Air Room Air 12/06/23 13:30 12/06/23 14:00 Temperature Temperature Source Pulse Rate 77 70 Respiratory Rate 16 21 H Blood Pressure 110/71 115/63 Blood Pressure Mean 84 80 Pulse Ox 98 100 Oxygen Delivery Method Room Air Positive well nourished and well developed; Negative for obese, cachectic, contractures or unkempt General Appearance ED: well developed; Negative for unkempt, cachectic, contractures or NAD Nutritional Appearance: Negative for cachectic or obese HEENT Reports moist mucous membranes atraumatic; Negative for trauma Nose: Negative for other Eyes EOMs intact bilaterally General Eye ED: Negative for pale conjunctiva, scleral icterus or other Neck no lymphadenopathy, supple and no JVD General: Negative for tenderness Thyroid: Negative for other Chest Wall inspection of chest normal and palpation of chest normal Chest: Negative for other Resp normal respiratory effort and clear to auscultation bilaterally Effort and Inspection: Negative for retractions Auscultation: Negative for rales, rhonchi, wheezes or diminished lung sounds Cardio no murmurs Rate: tachycardic Rhythm: Negative for regular rhythm GI normal to inspection, nondistended, normoactive bowel sounds, soft to palpation, non-tender, non-distended and no masses Inspection: Negative for abdominal distention Palpation: Negative for tender, guarding or rebound tenderness present Back/Spine no CVA tenderness General Back: Negative for CVA tenderness Cervical Spine: Negative for cervical spine tenderness Thoracic Spine / Upper Back: Negative for thoracic spinal tenderness Lumbar Spine / Lower Back: Negative for lumbar spinal tenderness Extremity normal to inspection General Extremety ED: Negative for deformity, edema or tenderness General Extremity: Negative for deformity or edema Neuro oriented x3 and CN's II-XII intact bilaterally Neuro Narrative: NIH score of 1 for expressive aphasia. Awake and alert. No motor loss. Sensorium / Orientation: alert, oriented to person, oriented to place and oriented to time; Negative for orientation impaired, confused, lethargic or stuporous Speech: Negative for speech normal Motor Exam: strength 5/5 throughout Psych mental status grossly normal Appearance: Negative for unkempt Attitude: No agitated Mood & Affect: Negative for depressed, anxious or tearful Skin no wounds General Skin Exam: Negative for jaundice Lesions: no lesions Rashes: no rashes Trauma: Negative for abrasion or laceration NIHSS NIHSS Initial: 1a Level of Consciousness: 0 1b LOC Questions (Score 2 if aphasic/stupor): 0 1c LOC Commands (Only score 1st attempt): 0 2 Best Gaze (If aphasic, use reflexive mvmts.): 0 3 Visual: 0 4 Facial Palsy: 0 5 Motor Arm Right (UN = amputation/fusion): 0 5 Motor Arm Left: 0 6 Motor Leg Right: 0 6 Motor Leg Left: 0 7 Limb ataxia (Only + if out of proportion): 0 8 Sensory (Aphasia/stupor=0 or 1, coma=2): 0 9 Best Language: 0 10 Dysarthria (mute, coma=2, intubated=UN): 1 11 Extinction and Inattention (only scored if +): 0 Total Score: 1 MDM MDM MDM Narrative Medical decision making narrative: 63-year-old male onset about half an hour ago of expressive aphasia. On Eliquis took it this morning. Also history of A-fib but he is in A-fib RVR currently. We placed in a stroke protocol. Most likely will not be a tenecteplase candidate due to him being on the blood thinner Eliquis. He will also receive Cardizem IV to control his heart rate. Patient returned from CAT scan his initial CT of the brain without contrast was read as unremarkable per the radiologist. Also reviewed that there is no bleed. When he returned from CAT scan he had spontaneously converted when he left he was in A-fib RVR rate in 150s. Currently is in a sinus rhythm rate in 70s. Prior to admission I had a lengthy discussion with the patient. He much preferred to be discharged to home. He understands risks and benefits. He also discussed this with his significant other that was at bedside. He chose to be discharged to home. Knows to return if worse. Will continue his metoprolol and his Eliquis. He is scheduled for an upcoming cardiac ablation for A-fib at [facility] On the . After the patient spoke to the hospitalist he did decide to do be admitted. History & Record Review Discussion w/independent historian: Patient Additional record(s) reviewed:: Prior inpatient record, Prior outpatient record, Prior ED visit and Prior labs Lab Data Attestation: I reviewed the patient's lab results. Lab results narrative: CBC shows white count of 10. H&H 15 and 45. Platelets 279. PT, INR and PTT were 14, 131. Chemistry showed a gap 7. BUN and creatinine 17 and 1.3. Glucose 136. Troponin 9. Labs: Laboratory Results - last 24 hr 12/06/23 12:57 WBC 10.9 RBC 5.39 Hgb 15.1 Hct 45.0 MCV 83.5 MCH 28.0 MCHC 33.6 RDW Std Deviation 39.8 RDW Coeff of Fabian 13.1 Plt Count 279 MPV 9.9 Immature Gran % (Auto) 0.600 Neut % (Auto) 59.8 Lymph % (Auto) 29.2 Sargent % (Auto) 9.0 Eos % (Auto) 0.8 Baso % (Auto) 0.6 Absolute Neuts (auto) 6.5 Absolute Lymphs (auto) 3.19 Nucleated RBC % 0 PT 14.0 INR 1.1 APTT 31.5 Sodium 136 Potassium 4.1 Chloride 103 Carbon Dioxide 26.0 Anion Gap 7 BUN 17 Creatinine 1.34 H Estim Creat Clear Calc 69.09 Est GFR (MDRD) Af Amer 69 Est GFR (MDRD) Non-Af 57 L BUN/Creatinine Ratio 12.7 Glucose 136 H Calcium 10.0 Troponin I High Sens 9 Radiography Chest X-Ray - ED: 1 View, Read by ED Physician, Read by Radiologist, Normal, Heart, Lungs, Mediastinum, Bony Structures and No Acute Disease Diagnostic Testing: Clinical Impression(s) from Imaging Studies Brain CT 12/06/23 13:00 IMPRESSION: Chronic involutional changes of the brain. N.B. : The above Results were Read Back by Gregory Love MD to Dany Hooker and understanding confirmed on 12/06/2023 13:10:56 (ET). Electronically Signed: Gregory Love MD at 13:12 EDT , ADDENDUM: 12/06/23 1319 IMPRESSION: Chronic involutional changes of the brain. N.B. : The above Results were Read Back by Gregory Love MD to Dany Hooker and understanding confirmed on 12/06/2023 13:10:56 (ET). Electronically Signed: Gregory Love MD at 13:12 EDT , Chest X-Ray 12/06/23 13:00 IMPRESSION: No acute abnormality is seen. Electronically Signed: Gregory Love MD at 13:51 EDT , Head/Neck CTA 12/06/23 13:07 IMPRESSION: Normal CTA Head and neck with contrast. N.B. : The above Results were Read Back by Gregory Love MD to Dr Morro MD, and understanding confirmed on 12/06/2023 13:24:59 (ET). Electronically Signed: Gregory Love MD at 13:26 EDT , ADDENDUM: 12/06/23 1333 IMPRESSION: Normal CTA Head and neck with contrast. N.B. : The above Results were Read Back by Gregory Love MD to Dr Morro MD, and understanding confirmed on 12/06/2023 13:24:59 (ET). Electronically Signed: Gregory Love MD at 13:26 EDT , Chest x-ray, portable, single view interpreted by by myself and radiologist shows no acute abnormality. Normal cardiac silhouette. Normal lung anderson. Chronic changes. Rhythm Strip Rhythm Strip: Sinus Rhythm Rate: 80 Ectopy: None EKG Initial EKG: Attestation: I personally reviewed and interpreted this EKG as follows: Interpretation: Sinus Rhythm and No Acute Injury Pattern Comments: Normal sinus rhythm rate 80 no acute signs of CO nor ischemia nor dysrhythmia. Discharge Plan Triage Chief Complaint: Stroke Alert ED Provider: Dany Hooker Dx/Rx/DC Orders Clinical Impression: Brain TIA, History of stroke, Atrial fibrillation with rapid ventricular response, Chronic anticoagulation Instructions: ED TIA: Transient Ischemic Attack Prescriptions: New metoprolol tartrate 25 mg tablet 12.5 mg PO BID 30 Days Qty: 30 0RF No Action Eliquis 5 mg tablet 5 mg PO BID Qty: 180 3RF metoprolol tartrate 25 mg tablet 12.5 mg PO BID Qty: 30 0RF Primary Care Provider: Pramod Ponce Referrals: Pramod Ponce MD [Primary Care Provider] - As Needed Activity Restrictions/Additional Instructions: Follow-up with your doctor as needed. Continue your medications as prescribed and including the Eliquis. Return if worse. Good luck with your ablation. Print Language: Bhutanese Disposition Disposition: Home, Self Care
--- NOTE | 2023-12-06 13:07 | CT_ITS ---
STUDY: CTA HEAD AND NECK WITH CONTRAST REASON FOR EXAM: Male, 63 years old. CVA RADIATION DOSAGE (If Supplied By Facility): CTDIvol = ( 26.35 ) mGy, DLP = ( 764.68 ) mGycm TECHNIQUE: CT angiography was performed with a multi-detector CT scanner. Data acquisition was obtained from the skull base through the vertex following intravenous administration of IV 100mL [id number]-[id number]. MIP images were reconstructed from the axial data set. Post-processing of the angiographic images was performed, with multiplanar reformation and 3D reconstruction. Individualized dose optimization techniques were used for this CT. COMPARISON: Comparison is made with prior examination dated October 05, 2023. FINDINGS: Normal bilateral petrous carotid arteries. Normal right cavernous carotid artery with a normal supraclinoid bifurcation. Normal left cavernous carotid artery with a normal supraclinoid bifurcation. Normal right A1 segments of the anterior cerebral artery. Normal left A1 segments of the anterior cerebral artery. Normal intact anterior communicating artery (ACOM). Normal bilateral A2 segments of the anterior cerebral arteries. Normal right M1 and M2 segments of the middle cerebral arteries, with a normal M1 bifurcation. Normal left M1 and M2 segments of the middle cerebral arteries, with a normal M1 bifurcation. Normal right posterior communicating artery (PCOM). Normal left posterior communicating artery (PCOM). Normal bilateral vertebral arteries. Normal basilar artery with a normal basilar bifurcation. The visualized bilateral superior cerebellar (SCA) arteries are normal. Normal bilateral P1, P2 and visualized P3 segments of the posterior cerebral arteries. There is no demonstrated aneurysm of the [place]. Heterogeneous appearance of the inferior pole of the right lobe of the thyroid. AORTIC ARCH: Normal visualized aortic arch. Normal origins of the brachiocephalic, left common carotid, and left subclavian arteries. RIGHT CAROTID ARTERIES: Normal right common carotid artery (CCA). Normal right common carotid bulb. Normal origin of the right internal carotid (ICA) artery without a hemodynamically significant stenosis. Normal visualized cervical portion of the right internal carotid artery. Normal origin of the right external carotid artery (ECA). LEFT CAROTID ARTERIES: Normal left common carotid artery (CCA). Normal left common carotid bulb. Normal origin of the left internal carotid (ICA) artery without a hemodynamically significant stenosis. Normal visualized cervical portion of the left internal carotid artery. Normal origin of the left external carotid artery (ECA). VERTEBRAL ARTERIES: Normal bilateral vertebral arteries. CT/STROKE CTA Head AND Neck W/Con IMPRESSION: Normal CTA Head and neck with contrast. N.B. : The above Results were Read Back by Gregory Love MD to Dr Morro MD, and understanding confirmed on 12/06/2023 13:24:59 (ET). Electronically Signed: Gregory Love MD at 13:26 EDT ,
--- NOTE | 2023-12-06 13:07 | NURSING ---
STROKE ALERT [id number]
[2023-12-06 13:10] LABS: Absolute Lymphocyte Count 3.19 X10^3/uL (0.83-4.51); Absolute Neutrophil Count 6.5 X10^3/uL (2.0-7.7); Basophil# 0.07 X10^3/uL; Basophil% 0.6 % (0-1); Eosinophil# 0.09 X10^3/uL; Eosinophils% 0.8 % (0-5); Hemoglobin 15.1 g/dL (13.0-16.5); Lymphocyte # 3.19 X10^3/ul (0.83-4.51); Lymphocyte % 29.2 % (19-41); Mean Corp Hgb Conc 33.6 g/dL (32-36); Mean Corpuscular Volume 83.5 fL (80-94); Mean Platelet Vol. 9.9 fl (6.2-12.0); Monocyte# 0.99 X10^3/uL; NRBC Flagged by Analyzer 0 % (0-5); Neutrophil # 6.53 X10^3/uL (2.7-7.7); Neutrophil % 59.8 % (47-70); Platelet Count 279 K/mm3 (150-450); RBC Distribution Width CV 13.1 % (11.6-14.6); RBC Distribution Width SD 39.8 fl (35.1-43.9); Red Blood Count 5.39 M/mm3 (4.6-6.2); White Blood Count 10.9 K/mm3 (4.4-11.0)
[2023-12-06 13:20] LABS: International Normalized Ratio 1.1
[2023-12-06 13:21] LABS: Partial Thromboplast Time 31.5 Seconds (24.1-36.2)
--- NOTE | 2023-12-06 13:26 | ED.RN ---
Pt. voices concerns and frustrations with not receiving the clot busting medications. Dr. marquis notified and he will be in to discuss patient questions.
[2023-12-06 13:31] LABS: Anion Gap 7 (5-15); BUN 17 mg/dL (7-18); BUN/Creat Ratio 12.7 RATIO (10-20); Chloride 103 mmol/L (98-107); Creatinine, Serum 1.34 mg/dL (0.70-1.30); EST Glomerular Filtration Rate 57 mL/min (>60); Est Glom Filt Rate - Afr Amer 69 mL/min (>60); Estimated Creatinine Clearance 69.09 ml/min; Glucose 136 mg/dL (74-106); Potassium 4.1 mmol/L (3.5-5.1); Sodium Level 136 mmol/L (136-145); Troponin-I HS 9 pg/mL (3.0-78.0)
--- NOTE | 2023-12-06 14:15 | HP.PCM.HOS_ITS ---
[facility] Date of Admission: 12/06/23 Date of Service: 12/06/23 Chief Complaint: expressive aphasia [facility] Narrative MARC STERLING, is a 63 M with a PMH as outlined who presents via the ED on 12/06/2023 with a complaitn of expressive aphasia. His last known well was 12:30pm. He has a history of afib and is on eliquis, and took his last dose on the morning of admission. 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 He denied any focal weakness, numbness or tingling or mouth droop. Review of systems was otherwise negative. Vitals in the ED were blood pressure 110/71, pulse rate of 77, respiratory rate of 16 and oxygen saturation of 98% on room air. CBC showed hemoglobin of 15.1 with WBC of 10.9 and platelets of 279. INR was 1.1. Chemistry showed creatinine of 1.34 but was otherwise unremarkable. Initial troponin was negative at 9. CT of the brain showed chronic involutional changes and showed no acute pathology. CT of the head and neck showed no hemodynamically significant stenosis. HE was in afib with RVR when he arrived in the ED and was given cardizem bolus, after which he converted to normal sinus rhythm. He has been admitted to be managed for expressive aphasia to rule out a stroke. Patient initially wanted to be discharged from the ED because he did not feel that there will be any change in his treatment as he was scheduled to have an ablation done for his A-fib at [facility] On December 11. I did ask patient what he would do if he went home and he had expressive aphasia and any focal weakness due to concern for stroke and patient stated that he would come right back to the hospital. I therefore counseled patient extensively that he had come in with A-fib with RVR but also had expressive aphasia which was concerning for stroke. Was therefore imperative that we did an MRI to rule a stroke out as if he did have a stroke he might indicate that his Eliquis was not being effective and so it would necessitate a change in his blood thinners. Patient was initially still reluctant to stay but then subsequently asked if I felt he would be resuming any risks to his health if he left. I explained in the affirmative that he has he would be assuming any risks to his health if he refused to stay to get further workup done. At that point patient agreed to stay and be admitted for stroke workup. [facility] Medical History Abnormal EKG Health care maintenance Left carotid bruit Aortic stenosis Palpitations Osteoarthritis Onychomycosis Genital herpes Erectile dysfunction Home Medications ?Medication ?Instructions ?Recorded ?Last Taken ?Type metoprolol tartrate 25 mg tablet 12.5 mg (1/2 x 25 mg) PO BID #30 10/05/23 Unknown Rx tabs apixaban 5 mg tablet (Eliquis) 5 mg PO BID #180 tabs 10/24/23 Unknown Rx metoprolol tartrate 25 mg tablet 12.5 mg (1/2 x 25 mg) PO BID 30 12/06/23 Unknown Rx days #30 tabs Allergy/AdvReac Type Severity Reaction Status Date / Time No Known Allergies Allergy Verified 12/06/23 12:59 Family History Father Heart disease CHF (congestive heart failure) Surgical History H/O vasectomy History of amputation of finger Hx of appendectomy Social History adopted: No household members: none number of children: 4 current occupational status: retired pets and animals: Yes Smoking Status: Former smoker quit date: 04/03/79 Tobacco: How many years used: 8 alcohol intake: never substance use type: does not use caffeine: Yes (4) Type: coffee frequency: 5-6 times per week seatbelt use: always do you feel safe at home: Yes ROS Constitutional Constitutional: Denies anorexia, change in weight, fever(s), malaise or weakness Eyes Eyes: Denies change in vision, double vision or loss of vision ENT HEENT: Denies abnormal hearing, headache(s), hearing loss or sore throat Cardiovascular Cardiovascular: Denies chest pain, dyspnea on exertion, edema, lightheadedness, orthopnea, palpitations, paroxysmal nocturnal dyspnea, rapid heart rate or syncope Respiratory/Chest Respiratory/Chest: Denies cough, dyspnea or shortness of breath at rest Gastrointestinal Gastrointestinal: Denies abdominal pain, constipation, diarrhea, nausea or vomiting Genitourinary Genitourinary: Denies burning urination Musculoskeletal Musculoskeletal: Denies arthralgias Neurologic Neurologic: Reports abnormal speech; Denies abnormal gait, confusion, disequilibrium, dizziness, focal weakness, headache(s), numbness, paresthesias, syncope or tingling Psychiatric Psychiatric: Denies anxiety or depression Endocrine Endocrinology: Denies change in body appearance Vital Signs Vital Signs Vital Signs: 12/06/23 12:56 12/06/23 12:59 12/06/23 13:03 Temperature 97.5 F L 97.5 F L Temperature Source Temporal Temporal Pulse Rate 155 H 155 H Respiratory Rate 27 H 19 H Blood Pressure 132/85 H 132/85 H Blood Pressure Mean 100 100 Pulse Ox 99 100 Oxygen Delivery Method Room Air Room Air Room Air 12/06/23 13:30 Temperature Temperature Source Pulse Rate 77 Respiratory Rate 16 Blood Pressure 110/71 Blood Pressure Mean 84 Pulse Ox 98 Oxygen Delivery Method Weight Weight: 233 lb 3.985 oz Body Mass Index (BMI) 31.6 Physical Exam Const alert, oriented x3 and no apparent distress General Appearance: cooperative HEENT normocephalic, head/scalp atraumatic, hearing grossly normal bilaterally, moist oral mucous membranes and oropharynx normal Mouth: oral and palatal mucosa normal Eyes PERRL, EOMs intact bilaterally and conjunctivae normal Neck no lymphadenopathy and supple Resp normal respiratory effort, no retractions, no use of accessory muscles and clear to auscultation bilaterally Cardio regular rate, regular rhythm, S1 normal heart sound, S2 normal heart sound and no murmurs GI normal to inspection, nondistended, normoactive bowel sounds, soft to palpation, non-tender and non-distended Extremity normal to inspection, full ROM and no clubbing, cyanosis or edema Neuro oriented x3, moves all extremities and no focal motor deficits Neuro Narrative: has expressive aphasia, NIHSS is 0 Sensorium / Orientation: awake and alert Motor Exam: strength 5/5 throughout Psych affect normal Results Lab / Micro Data 12/06/23 12:57 12/06/23 12:57 Labs: Laboratory Results - last 24 hr 12/06/23 12:57: WBC 10.9, RBC 5.39, Hgb 15.1, Hct 45.0, MCV 83.5, MCH 28.0, MCHC 33.6, RDW Std Deviation 39.8, RDW Coeff of Fabian 13.1, Plt Count 279, MPV 9.9, Immature Gran % (Auto) 0.600, Neut % (Auto) 59.8, Lymph % (Auto) 29.2, [place] % (Auto) 9.0, Eos % (Auto) 0.8, Baso % (Auto) 0.6, Absolute Neuts (auto) 6.5, Absolute Lymphs (auto) 3.19, Nucleated RBC % 0, PT 14.0, INR 1.1, APTT 31.5, Sodium 136, Potassium 4.1, Chloride 103, Carbon Dioxide 26.0, Anion Gap 7, BUN 17, Creatinine 1.34 H, Estim Creat Clear Calc 69.09, Est GFR (MDRD) Af Amer 69, Est GFR (MDRD) Non-Af 57 L, BUN/Creatinine Ratio 12.7, Glucose 136 H, Calcium 10.0, Troponin I High Sens 9 Imaging Radiology Impression Brain CT 12/06/23 13:00 IMPRESSION: Chronic involutional changes of the brain. N.B. : The above Results were Read Back by Gregory Love MD to Dany Hooker and understanding confirmed on 12/06/2023 13:10:56 (ET). Electronically Signed: Gregory Love MD at 13:12 EDT , ADDENDUM: 12/06/23 1319 IMPRESSION: Chronic involutional changes of the brain. N.B. : The above Results were Read Back by Gregory Love MD to Dany Hooker and understanding confirmed on 12/06/2023 13:10:56 (ET). Electronically Signed: Gergory Love MD at 13:12 EDT , Chest X-Ray 12/06/23 13:00 IMPRESSION: No acute abnormality is seen. Electronically Signed: Gregory Love MD at 13:51 EDT , Head/Neck CTA 12/06/23 13:07 IMPRESSION: Normal CTA Head and neck with contrast. N.B. : The above Results were Read Back by Gregory Love MD to Dr Morro MD, and understanding confirmed on 12/06/2023 13:24:59 (ET). Electronically Signed: Gregory Love MD at 13:26 EDT , ADDENDUM: 12/06/23 1333 IMPRESSION: Normal CTA Head and neck with contrast. N.B. : The above Results were Read Back by Gregory Love MD to Dr Morro MD, and understanding confirmed on 12/06/2023 13:24:59 (ET). Electronically Signed: Gregory Love MD at 13:26 EDT , Assessment & Plan Assessment/Plan (1) Atrial fibrillation with rapid ventricular response: (2) Stroke-like symptom: PLAN: Plan #Expressive aphasia * Patient's last known well was 12:30 PM on 12/06/2023, the day he presented. 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 * CT of the brain showed no acute intracranial pathology and CT of the head and neck showed no hemodynamically significant stenosis * He was in A-fib with RVR when he came but converted to normal sinus rhythm after he was given Cardizem bolus. * He does have a history of A-fib and is on Eliquis and took his morning dose today. Patient was therefore not a TNK candidate. * Admit to PCU under observation * Get MRI of the brain. Check limited 2D echo as he recently had an echo done in July 2023 which showed normal LV size and function, EF of 65% and noderate focal aortic valve thickeing with mild to moderate aortic stenosis. * Continue Eliquis. Consult neurology. * Keep n.p.o. until passes swallow evaluation. * Hold any BP meds to allow for permissive hypertension. * PT OT consulted. #A-fib with RVR: * Came in with RVR now converted to normal sinus rhythm. * On p.o. metoprolol 12.5 mg twice daily. He was in A-fib with RVR when he came in to the ED but converted to NSR after receiving a bolus of cardizem. DVT prophylaxis: Already on Eliquis. CODE STATUS: full code * Patient counseled extensively about different types of CODE STATUS including full code, DNR CCA and DNR CCA. * Patient elects to be full code. * Total [id number] time 17 minutes. Charges/Coding Visit Charges Inpatient E&M: 70047 Init Hosp L2 Procedures Hospitalists Procedures: 05646 Advncd Care Plan 30 Min
--- NOTE | 2023-12-06 16:34 | MRI_ITS ---
EXAM: MR HEAD WITHOUT INTRAVENOUS CONTRAST CLINICAL INDICATION: expressive aphasia TECHNIQUE: Multiplanar and multisequence MR images of the brain were obtained without intravenous contrast. COMPARISON: CT head and CT angiogram head on the same date. 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 Multiple foci of T2 and T2 FLAIR hyperintensity within the white matter of the bilateral cerebral hemispheres are most commonly due to chronic microvascular ischemic changes in a patient of this age. No intra- or extra-axial hemorrhage. No evidence of acute infarct. No intracranial mass or mass effect. There is preservation of the hernández/white matter interface. Posterior fossa structures are unremarkable. Ventricles are appropriate for age. No hydrocephalus. Basal cisterns are patent. SELLA: No significant abnormality. Normal sella turcica, pituitary gland, infundibular stalk, optic chiasm and hypothalamus. AUDITORY SYSTEM: No significant abnormality. The internal auditory canals are patent. BONES/JOINTS: No significant abnormality. No discrete lytic or blastic abnormalities. SINUSES: Normal as visualized. Clear. MASTOID AIR CELLS: Normal as visualized. Clear. ORBITS: Normal as visualized. Both globes, extraocular muscles, optic nerves and retrobulbar fat appear unremarkable. VASCULATURE: Normal as visualized. Normal flow voids in the major intracranial circulation. MRI/Brain without Contrast IMPRESSION: Chronic ischemic changes. No evidence of acute intracranial pathology. Electronically Signed: Crow Feng DO at 20:16 EDT ,
--- NOTE | 2023-12-06 16:34 | ECHOD_ITS ---
Version 2 Reason For Study: TIA/CVA Procedure This was a 2D Doppler, Color Flow transthoracic echocardiogram. Exam performed portable in patient room. Left Ventricle Normal LV size. The left ventricular ejection fraction is 70 %. Left ventricular systolic function is normal. No regional wall motion abnormalities noted. Right Ventricle Normal RV size. Normal systolic function. Atria Normal left atrium. Normal right atrium. Bubble contrast study negative for right to left interatrial shunt. Tricuspid Valve Normal tricuspid valve. Mild to moderate (1-2+) tricuspid valve insufficiency. Pulmonary artery systolic pressure is 34 mmHg. Aortic Valve Trisinus/trileaflet aortic valve. Moderate focal aortic valve calcification. Peak aortic valve gradient 49 mmHg. Mean aortic valve gradient 30 mmHg. Moderate aortic stenosis. Pulmonic Valve Normal pulmonic valve. Great Vessels Normal aortic root. The pulmonary artery is normal size. Inferior vena cava collapse with respiration. Pericardium/Pleural No pericardial effusion. Medication Performed a rapid injection of agitated mix of 9 cc saline and 1cc air to assess for atrial septal defect. MMode/2D Measurements & Calculations LVIDd: 4.8 cm IVSd: 1.5 cm LVOT diam: 2.5 cm LVIDs: 2.6 cm LVPWd: 1.1 cm LVOT area: 4.8 cm2 RVDd: 3.9 cm FS: 46.0 % Ao root diam: 3.6 cm LAV(MOD-bp): 50.4 ml LVAd ap4: 39.0 cm2 LAV(MOD-bp) Indexed: 23.5 ml/m2 LVLd ap4: 9.3 cm LAV(MOD-sp2): 50.2 ml EDV(MOD-sp4): 135.7 ml LAV(MOD-sp4): 45.6 ml EDV(sp4-el): 139.1 ml LVAs ap4: 19.5 cm2 LVLs ap4: 7.5 cm ESV(MOD-sp4): 44.2 ml ESV(sp4-el): 42.9 ml EF(MOD-sp4): 67.4 % EF(sp4-el): 69.2 % SV(MOD-sp4): 91.5 ml SV(sp4-el): 96.3 ml LA A4 area: 18.7 cm2 LA dimension(2D): 3.3 cm RA A4 area: 15.7 cm2 TAPSE: 2.1 cm Time Measurements MV dec time: 0.25 sec Doppler Measurements & Calculations MV E max julio: 72.0 cm/sec Lat Peak E' Julio: 11.3 cm/sec Med Peak E' Julio: 12.3 cm/sec MV A max julio: 69.5 cm/sec E/E' lat: 6.4 E/E' med: 5.8 MV E/A: 1.0 Ao V2 max: 349.3 cm/sec LV V1 max: 100.8 cm/sec SV(LVOT): 113.9 ml Ao max P.9 mmHg LV V1 max P.1 mmHg Ao V2 mean: 260.6 cm/sec LV V1 mean P.1 mmHg Ao mean P.6 mmHg LV V1 mean: 67.9 cm/sec Ao V2 VTI: 86.2 cm LV V1 VTI: 23.7 cm AV (velocity ratio): 0.28 KIANA(I,D): 1.3 cm2 KIANA(V,D): 1.4 cm2 PA V2 max: 112.6 cm/sec TR max julio: 271.6 cm/sec TR max P.5 mmHg ECHO/Echo Complete Interpretation Summary Normal LV size. The left ventricular ejection fraction is 70 %. Moderate focal aortic valve calcification. Moderate aortic stenosis. Mean aortic valve gradient 30 mmHg. Bubble contrast study negative for right to left interatrial shunt. Left ventricular systolic function is normal. Ordering Physician: Stella Pollard Referring Physician: KEIRA EDWARDS Performed By: Ivania Zapata RDCS
[2023-12-06] MEDS: Aspirin 81 MG TAB.CHEW PO (17:03)
[2023-12-06] MEDS: APIXABAN 5 MG TABLET PO (20:22)
[2023-12-06] MEDS: Metoprolol Tartrate 25 MG Tablet 12.5 MG PO (20:23)
[2023-12-07 02:29] VITALS: BP 97/62; PULSE 58; RESP 18; TEMP 36.7; O2SAT 96
[2023-12-07 02:38] VITALS: BMI 27.7
--- NOTE | 2023-12-07 06:54 | STROKE.CONS ---
Assessment and Plan: Stroke Assessment/Plan MARC STERLING is a 63 M with a history of afib on eliquis who presents for evaluation of multiple TIAs while on appropriate secondary prevention. These events appear to be related to when his afib goes into RVR. Patient may benefit from better afib rhythm and rate control. etiology: Cardioembolic - Anti-platelet medication: continue Eliquis 5mg BID - LDL 105, rec starting atorvastatin 40mg - Occupational/ Physical therapy consults - NPO until swallow evaluation. IVF until able to take po - DVT prophylaxis with SCDs and heparin SQ - Vascular risk factor modification. 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 BP management should aim to achieve chcf contorl in a reasonable amount of time, taking into consideration the individual patient's requirements and characteristics. Weight Management: Goal for BMI is 18.5 -24.9 kg/m2 Alcohol: No more than 2 drinks/day for men or 1 drink/day for non- women - Promote lifestyle modification: weight control, physical activity, moderation of alcohol intake, moderate sodium intake. Followup with PCP in 1-2 weeks, and in Neurology clinic in 6-12 weeks HPI Consult Data Date of Consult: 12/08/23 HPI Narrative HPI Narrative: MARC STERLING, is a 63 M with a PMH as outlined who presents via the ED on 12/06/2023 with a complaitn of expressive aphasia. His last known well was 12:30pm. He has a history of afib and is on eliquis, and took his last dose on the morning of admission. 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 He denied any focal weakness, numbness or tingling or mouth droop. Review of systems was otherwise negative. Has never had a stroke, had something similar 3 weeks ago where he had difficulty writing and difficulty thinking lasting 2 hrs. The symptoms this time came on gradually and he said the feeling was that his heart was racing and he feels very tired and will get a severe headache. Then he had difficulty getting his words out. The first time this happened he had heart racing, fatigue, headache as well but was much longer. No missed dosages of the eliquis, has been on it for a month. [facility] Medical History Abnormal EKG Health care maintenance Left carotid bruit Aortic stenosis Palpitations Osteoarthritis Onychomycosis Genital herpes Erectile dysfunction Home Medications ?Medication ?Instructions ?Recorded ?Last Taken ?Type apixaban 5 mg tablet (Eliquis) 5 mg PO BID #180 tabs 10/24/23 Unknown Rx metoprolol tartrate 25 mg tablet 12.5 mg (1/2 x 25 mg) PO BID 30 12/06/23 Unknown Rx days #30 tabs aspirin 81 mg capsule 81 mg PO DAILY #30 caps 12/07/23 Unknown Rx atorvastatin 40 mg tablet (Lipitor) 40 mg PO DAILY #90 tabs 12/07/23 Unknown Rx metoprolol tartrate 25 mg tablet 12.5 mg (1/2 x 25 mg) PO BID #90 12/07/23 Unknown Rx tabs Allergy/AdvReac Type Severity Reaction Status Date / Time No Known Allergies Allergy Verified 12/06/23 12:59 Family History Father Heart disease CHF (congestive heart failure) Surgical History H/O vasectomy History of amputation of finger Hx of appendectomy Social History adopted: No household members: none number of children: 4 current occupational status: retired pets and animals: Yes Smoking Status: Former smoker quit date: 04/03/79 Tobacco: How many years used: 8 alcohol intake: never substance use type: does not use caffeine: Yes (4) Type: coffee frequency: 5-6 times per week seatbelt use: always do you feel safe at home: Yes Vital Signs Vital Signs Vital Signs: 12/06/23 12:56 12/06/23 12:59 12/06/23 13:03 Temperature 97.5 F L 97.5 F L Temperature Source Temporal Temporal Pulse Rate 155 H 155 H Pulse Strength Respiratory Rate 27 H 19 H Respiratory Effort Respiratory Depth Respiratory Pattern Blood Pressure 132/85 H 132/85 H Blood Pressure Mean 100 100 Blood Pressure Source Blood Pressure Position Blood Pressure Location Pulse Ox 99 100 Oxygen Delivery Method Room Air Room Air Room Air 12/06/23 13:30 12/06/23 14:00 12/06/23 15:00 Temperature Temperature Source Pulse Rate 77 70 78 Pulse Strength Respiratory Rate 16 21 H 16 Respiratory Effort Respiratory Depth Respiratory Pattern Blood Pressure 110/71 115/63 119/80 Blood Pressure Mean 84 80 93 Blood Pressure Source Blood Pressure Position Blood Pressure Location Pulse Ox 98 100 100 Oxygen Delivery Method Room Air 12/06/23 15:05 12/06/23 15:30 12/06/23 16:40 Temperature 97.9 F 98.0 F Temperature Source Oral Pulse Rate 78 62 60 Pulse Strength Respiratory Rate 16 15 16 Respiratory Effort Respiratory Depth Respiratory Pattern Blood Pressure 119/80 115/67 113/74 Blood Pressure Mean 93 83 87 Blood Pressure Source Monitor Blood Pressure Position Semi-Fowlers Blood Pressure Location Left Arm Pulse Ox 100 100 99 Oxygen Delivery Method Room Air Room Air 12/06/23 17:00 12/06/23 19:41 12/06/23 20:20 Temperature 97.9 F Temperature Source Oral Pulse Rate 69 Pulse Strength Respiratory Rate 18 Respiratory Effort Normal Non-Labored Normal Non-Labored Respiratory Depth Normal Normal Respiratory Pattern Normal Normal Blood Pressure 110/59 L Blood Pressure Mean 76 Blood Pressure Source Monitor Blood Pressure Position Semi-Fowlers Blood Pressure Location Left Arm Pulse Ox 95 Oxygen Delivery Method Room Air Room Air Room Air 12/06/23 20:23 12/06/23 22:08 12/07/23 02:29 Temperature 98.1 F Temperature Source Oral Pulse Rate 69 58 L Pulse Strength Normal (2+) Respiratory Rate 18 Respiratory Effort Respiratory Depth Respiratory Pattern Blood Pressure 110/59 L 97/62 Blood Pressure Mean 73 Blood Pressure Source Monitor Blood Pressure Position Semi-Fowlers Blood Pressure Location Left Forearm Pulse Ox 96 Oxygen Delivery Method Room Air 12/07/23 02:34 Temperature Temperature Source Pulse Rate Pulse Strength Respiratory Rate Respiratory Effort Normal Non-Labored Respiratory Depth Normal Respiratory Pattern Normal Blood Pressure Blood Pressure Mean Blood Pressure Source Blood Pressure Position Blood Pressure Location Pulse Ox Oxygen Delivery Method Room Air Weight Weight: 92.8 kg Body Mass Index (BMI) 27.7 NIHSS NIHSS Nursing Documentation NIHSS Nursing Documentation: NIHSS: Ischemic Stroke/TIA Start: 12/06/23 16:34 Text: For PCU Patients: NIH and Neuro Check every 4 Status: Complete hours, PRN and with change in RN caregiver. Freq: [id number] Protocol: Activity Type Activity Date Activity User E-sign Co-sign Detail Recorded Client Recorded Date Recorded By Document 12/06/23 20:25 DC desktop 12/06/23 20:29 DC 12/06/23 20:25 NIH Stroke Scale [NIHSS] A score of 0 is normal or asymptomatic . Total possible score is 42. Inpatient: RN or Physician to activate a stroke alert for onset of new stroke symptoms or with NIHSS increase >/= 3 points. Following change in neurological status, NIHSS will be performed per physician order or more frequently PRN. -1a. Level of Consciousness Alert; keenly responsive -1b. LOC Questions Answers BOTH questions correctly. -1c. LOC Commands Performs both tasks correctly . -2. Best Gaze Normal -3. Visual No visual loss -4. Facial Palsy Normal symmetrical movements -5a. Left Arm No drift; arm holds 90 (or 45 ) degrees for full 10 seconds -5b. Right Arm No drift; arm holds 90 (or 45 ) degrees for full 10 seconds -6a. Left Leg No drift; leg holds 30-degree position for full 5 seconds -6b. Right Leg No drift; leg holds 30-degree position for full 5 seconds -7. Limb Ataxia Absent -8. Sensory Normal; no sensory loss -9. Best Language No aphasia; normal -10. Dysarthria Normal -11. Extinction and Inattention No abnormality -Total 0 Query Text:A score of 0 is normal or asymptomatic. Total possible score is 42 . ED: Notify Physician for NIHSS increase by > / = 3 points. Inpatient: RN or Physician to activate a stroke alert for NIHSS increase of > / = 3 points. Coma Scale [Assess] -Eye Opening Spontaneous -Motor Obeys Commands -Verbal Oriented [Total] -Coma Scale Total 15 NIHSS 1a. Level of Consciousness: Alert; keenly responsive 1b. LOC Questions: Answers BOTH questions correctly. 1c. LOC Commands: Performs both tasks correctly. 2. Best Gaze: Normal 3. Visual: No visual loss 4. Facial Palsy: Normal symmetrical movements 5a. Left Arm: No drift; arm holds 90 (or 45) degrees for full 10 seconds 5b. Right Arm: No drift; arm holds 90 (or 45) degrees for full 10 seconds 6a. Left Leg: No drift; leg holds 30-degree position for full 5 seconds 6b. Right Leg: No drift; leg holds 30-degree position for full 5 seconds 7. Limb Ataxia: Absent 8. Sensory: Normal; no sensory loss 9. Best Language: No aphasia; normal 10. Dysarthria: Normal 11. Extinction and Inattention: No abnormality Total: 0 Lab / Micro Data 12/07/23 07:07 12/07/23 07:07 Labs: Laboratory Results - last 24 hr 12/06/23 12:57: WBC 10.9, RBC 5.39, Hgb 15.1, Hct 45.0, MCV 83.5, MCH 28.0, MCHC 33.6, RDW Std Deviation 39.8, RDW Coeff of Fabian 13.1, Plt Count 279, MPV 9.9, Immature Gran % (Auto) 0.600, Neut % (Auto) 59.8, Lymph % (Auto) 29.2, [place] % (Auto) 9.0, Eos % (Auto) 0.8, Baso % (Auto) 0.6, Absolute Neuts (auto) 6.5, Absolute Lymphs (auto) 3.19, Nucleated RBC % 0, PT 14.0, INR 1.1, APTT 31.5, Sodium 136, Potassium 4.1, Chloride 103, Carbon Dioxide 26.0, Anion Gap 7, BUN 17, Creatinine 1.34 H, Estim Creat Clear Calc 69.09, Est GFR (MDRD) Af Amer 69, Est GFR (MDRD) Non-Af 57 L, BUN/Creatinine Ratio 12.7, Glucose 136 H, Calcium 10.0, Troponin I High Sens 9 Rhythm Strip Rhythm Strip: Sinus Rhythm Rate: 80 Ectopy: None Imaging Radiology Impression Brain CT 12/06/23 13:00 IMPRESSION: Chronic involutional changes of the brain. N.B. : The above Results were Read Back by Gregory Love MD to Dany Hooker and understanding confirmed on 12/06/2023 13:10:56 (ET). Electronically Signed: Gregory Love MD at 13:12 EDT , ADDENDUM: 12/06/23 1319 IMPRESSION: Chronic involutional changes of the brain. N.B. : The above Results were Read Back by Gregory Love MD to Dany Hooker and understanding confirmed on 12/06/2023 13:10:56 (ET). Electronically Signed: Gregory Love MD at 13:12 EDT , Chest X-Ray 12/06/23 13:00 IMPRESSION: No acute abnormality is seen. Electronically Signed: Gregory Love MD at 13:51 EDT , Head/Neck CTA 12/06/23 13:07 IMPRESSION: Normal CTA Head and neck with contrast. N.B. : The above Results were Read Back by Gregory Love MD to Dr Morro MD, and understanding confirmed on 12/06/2023 13:24:59 (ET). Electronically Signed: Gregory Love MD at 13:26 EDT , ADDENDUM: 12/06/23 1333 IMPRESSION: Normal CTA Head and neck with contrast. N.B. : The above Results were Read Back by Gregory Love MD to Dr Morro MD, and understanding confirmed on 12/06/2023 13:24:59 (ET). Electronically Signed: Gregory Love MD at 13:26 EDT , Brain MRI 12/06/23 16:34 IMPRESSION: Chronic ischemic changes. No evidence of acute intracranial pathology. Electronically Signed: Crow Feng DO at 20:16 EDT , Active Medications Active Medications Active Medications: Current Medications Generic Name Dose Route Start Last Admin Trade Name Freq PRN Reason Stop Dose Admin Acetaminophen 650 mg 12/06/23 16:34 Acetaminophen 325 Mg Tablet PO Q6H PRN PRN Pain 1-10 Or Fever >100.7 Apixaban 5 mg 12/06/23 22:00 12/06/23 20:22 Apixaban 5 Mg Tablet PO 5 mg BID MARISELA Administration Hydralazine HCl 5 mg 12/06/23 16:34 Hydralazine 20 Mg/Ml Vial IV 12/07/23 16:34 Q30M PRN maintain BP parameters with HR <60 Sodium Chloride 250 mls @ 15 mls/hr 12/06/23 16:41 IV .[id number] PRN Additional IVPB Infusion Sodium Chloride 250 mls @ 15 mls/hr 12/06/23 16:41 IV .[id number] PRN Saline Flush Labetalol HCl 10 - 20 mg 12/06/23 16:34 Labetalol (Prefilled) 20 Mg/4 Ml IV 12/07/23 16:34 Q10M PRN PRN maintain BP parameters with HR >/=60 Metoprolol Tartrate 12.5 mg 12/06/23 22:00 12/06/23 20:23 Metoprolol Tartrate 25 Mg Tablet PO 12.5 mg BID MARISELA Administration Protocol Oxycodone HCl 2.5 - 5 mg 12/06/23 16:34 Oxycodone 5 Mg Tablet PO Q4H PRN PRN Pain Score 4-10 Sodium Chloride 10 - 40 ml 12/06/23 16:41 0.9% Saline Lock 10 Ml Syringe IV UD PRN SALINE FLUSH
[2023-12-07 07:20] LABS: Absolute Neutrophil Count 4.7 X10^3/uL (2.0-7.7); Basophil# 0.04 X10^3/uL; Basophil% 0.6 % (0-1); Eosinophil# 0.09 X10^3/uL; Eosinophils% 1.3 % (0-5); Hematocrit 40.9 % (40-54); Hemoglobin 13.4 g/dL (13.0-16.5); Lymphocyte % 22.7 % (19-41); Mean Corp Hgb Conc 32.8 g/dL (32-36); Mean Corpuscular Volume 85.4 fL (80-94); Mean Platelet Vol. 9.7 fl (6.2-12.0); Monocyte# 0.61 X10^3/uL; Monocyte% 8.6 % (0-10); NRBC Flagged by Analyzer 0 % (0-5); Neutrophil # 4.69 X10^3/uL (2.7-7.7); Neutrophil % 66.4 % (47-70); Platelet Count 199 K/mm3 (150-450); RBC Distribution Width CV 13.2 % (11.6-14.6); Red Blood Count 4.79 M/mm3 (4.6-6.2); White Blood Count 7.1 K/mm3 (4.4-11.0)
[2023-12-07 08:04] LABS: Anion Gap 3 (5-15); BUN 18 mg/dL (7-18); BUN/Creat Ratio 16.4 RATIO (10-20); Calcium,Total 9.4 mg/dL (8.5-10.1); Chloride 107 mmol/L (98-107); Cholesterol 184 mg/dL (200); EST Glomerular Filtration Rate 71 mL/min (>60); Est Glom Filt Rate - Afr Amer 86 mL/min (>60); Estimated Creatinine Clearance 73.48 ml/min; Glucose 130 mg/dL (74-106); High Density Lipoprotein 63 mg/dL; Potassium 4.6 mmol/L (3.5-5.1); Sodium Level 139 mmol/L (136-145); Triglycerides 79 mg/dL; Very Low Density Lipoprotein 16 mg/dL (5-40)
[2023-12-07 08:27] VITALS: O2SAT 94
[2023-12-07 08:30] VITALS: BP 129/75; PULSE 66; RESP 18; TEMP 36.8; O2SAT 97
[2023-12-07 08:31] VITALS: PULSE 66
[2023-12-07] MEDS: Metoprolol Tartrate 25 MG Tablet 12.5 MG PO (08:31)
[2023-12-07] MEDS: APIXABAN 5 MG TABLET PO (08:32)
--- NOTE | 2023-12-07 14:22 | PCM.DC.SUM ---
Providers Date of Admission: 12/06/23 Date of Discharge: 12/07/23 Primary Care Physician: Dr. Pramod Ponce MD Consultations 12/06/23 16:34 Consult: Tele-Neurology Routine Consulting Provider: [facility] Reason for Consult: Acute Ischemic Stroke/TIA EMERGENT Consult: No MD Notified: Yes Date Notified: 12/06/23 Time Notified: 14:29 Method of Notification: Answering Service Nursing Unit Staff Notify [facility] of Tele-Neurology Consult: Yes Reason For Visit: STROKE LIKE SYMPTOMS Diagnosis Discharge Diagnosis (1) Atrial fibrillation with rapid ventricular response: Status: Acute Code(s): I48.91 - Unspecified atrial fibrillation (2) Stroke-like symptom: Status: Acute Code(s): R29.90 - Unspecified symptoms and signs involving the nervous system Medications at Discharge Home Medications apixaban 5 mg tablet (Eliquis) 5 mg PO BID #180 tabs 10/24/23 metoprolol tartrate 25 mg tablet 12.5 mg (1/2 x 25 mg) PO BID 30 days #30 tabs 12/06/23 aspirin 81 mg capsule 81 mg PO DAILY #30 caps 12/07/23 atorvastatin 40 mg tablet (Lipitor) 40 mg PO DAILY #90 tabs 12/07/23 metoprolol tartrate 25 mg tablet 12.5 mg (1/2 x 25 mg) PO BID #90 tabs 12/07/23 Hospital Course Procedures 2-D Echocardiogram, EKG and - (Chest x-ray/CTA brain/CTA head neck) Summary of Care Provided Minutes Spent on Discharge: 30 Hospital Course: Mr. Caraballo is a 63-year-old white male who presented to the emergency department at [facility] on 12/06/2019 for with a chief complaint of expressive aphasia. He indicates he has had a few episodes like this previously and has been dealing with atrial fibrillation that is paroxysmal in nature. He has been compliant with his Eliquis but does not take aspirin on a regular basis. He does note that intermittently he is in atrial fibrillation with heart rates upwards of 180. 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 He had no focal weakness, tingling, or numbness and denied any facial droop. Vital signs on presentation showed a temperature of 95.5, heart rate 155 with repeat at 77 (rhythm was initially atrial fibrillation but he converted quickly and spontaneously), respiratory was 19, blood pressure was 132/85 and oxygen saturation was 99 to 100% on room air. His CBC was unremarkable. Coags were normal. Chemistry panel showed mild creatinine elevation 1.35 which appears to be fairly consistent when compared to previous and some mild hyperglycemia with a blood glucose of 136. This was not a fasting blood glucose level. Lipids were assessed and he was found of a total cholesterol of 184, LDL of 105 and HDL of 63 with a triglyceride level of 79. Initial EKG showed sinus rhythm with a heart rate of 80, normal intervals, and no ST-T wave changes concerning for acute ischemia. Chest x-ray showed no acute abnormality. CT of the head and neck was unremarkable. MRI of the brain showed chronic ischemic changes with no evidence of acute intracranial pathology. Patient had a read is sent echocardiogram that showed a normal EF of 65% with mild to moderate aortic stenosis and a peak aortic valve gradient of 43 with a mean gradient of 29 mmHg. Neurology was concerned that maybe his paroxysmal atrial fibrillation was causing intermittent microvascular issues causing his symptoms however the patient has been compliant with anticoagulation. 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 He will be maintained on Eliquis and we will add aspirin 81 mg daily. Given his LDL was not at goal less than 100 for history of TIA we will start Lipitor 40 mg daily. Patient reported he also did not have the right prescription for his metoprolol and needed a 90-day supply. I gave him prescriptions for 90-day supply of Lipitor and metoprolol and instructed him to buy [id number] 81 mg aspirin and take this daily and follow-up with EP as already scheduled. The patient was discharged in stable condition on 12/07/2023 and instructed to return if any recurrent symptoms appear. Discharge diagnoses: Expressive aphasia-transient suspect TIA Hyperlipidemia-LDL greater than 100 Elevated serum creatinine-baseline unclear but resolved Paroxysmal atrial fibrillation Aortic stenosis Osteoarthritis ED Physical Exam Const alert, oriented x3, no apparent distress, no limitations and well nourished Constitutional Narrative: Slightly overweight, upper middle-aged, white male, sitting up in a chair at the bedside, appears comfortable, nontoxic General Appearance: cooperative, comfortable, well kempt and well developed Orientation / Consciousness: awake, oriented to person, oriented to place and oriented to time Exam Limitations: no limitations Nutritional Appearance: overweight HEENT normocephalic, head/scalp atraumatic, hearing grossly normal bilaterally and moist oral mucous membranes Eyes Eyes Narrative: No scleral icterus Resp normal respiratory effort, no retractions, no use of accessory muscles and clear to auscultation bilaterally Cardio regular rate, regular rhythm, S1 normal heart sound, S2 normal heart sound, no rub, no gallops and no clicks Cardio Narrative: 3 out of 6 systolic murmur loudest at right upper sternal border GI normal to inspection, nondistended, normoactive bowel sounds, soft to palpation and non-tender Extremity no clubbing, cyanosis or edema Neuro oriented x3, CN's II-XII intact bilaterally, moves all extremities and no focal motor deficits Speech: speech normal Psych affect normal Psych Narrative: Very pleasant, interacts appropriately Weight / BMI Weight Weight: 92.8 kg Body Mass Index (BMI) 27.7 ABG / Lab / Microbiology Data 12/07/23 07:07 12/07/23 07:07 Laboratory: Laboratory Results - last 24 hr 12/07/23 07:07: WBC 7.1, RBC 4.79, Hgb 13.4, Hct 40.9, MCV 85.4, MCH 28.0, MCHC 32.8, RDW Std Deviation 41.0, RDW Coeff of Fabian 13.2, Plt Count 199, MPV 9.7, Immature Gran % (Auto) 0.400, Neut % (Auto) 66.4, Lymph % (Auto) 22.7, [place] % (Auto) 8.6, Eos % (Auto) 1.3, Baso % (Auto) 0.6, Absolute Neuts (auto) 4.7, Absolute Lymphs (auto) 1.60, Nucleated RBC % 0, Sodium 139, Potassium 4.6, Chloride 107, Carbon Dioxide 29.0, Anion Gap 3 L, BUN 18, Creatinine 1.10, Estim Creat Clear Calc 73.48, Est GFR (MDRD) Af Amer 86, Est GFR (MDRD) Non-Af 71, BUN/Creatinine Ratio 16.4, Glucose 130 H, Calcium 9.4, Triglycerides 79, Cholesterol 184, LDL Cholesterol 105, VLDL Cholesterol 16, HDL Cholesterol 63 Radiography Diagnostic Testing: Radiology Impression Brain MRI 12/06/23 16:34 IMPRESSION: Chronic ischemic changes. No evidence of acute intracranial pathology. Electronically Signed: Crow HernandezcristalDO tiffanie at 20:16 EDT , D/C Instructions Discharge Diet: Low fat / Low cholesterol Meaningful Use Info Meaningful Use Meaningful Use Diagnoses (Choose all that apply): None applicable Ischemic Stroke Statin Dosing Therapy Reference: STATIN DOSE THERAPY REFERENCE: * Patients > 75 years receive moderate or high dose statin therapy. * Patients 75 years or YOUNGER should receive HIGH intensity statin dose unless contraindicated. You will be required to document reason for non-treatment if statin daily dose does not meet guidelines. HIGH DOSE STATIN THERAPY DAILY Atorvastatin > than or = to 40 mg Rosuvastatin > than or = to 20 mg Amlodipine + Atorvastatin > than or = to 2.5/40 mg Ezetimibe + Simvastatin 10/80 mg Simvastatin 80mg Discharge Plan Admission Admit Date/Time: 12/06/23 14:27 Primary Reason for Your Visit: Expressive Aphasia Attending Provider: Mary Dorantes Primary Care Provider: Pramod Ponce Consulting Providers: Demario Hoffman; Hayley Azevedo; Alice Gudino; Salma Joshi; Sanjana Calderon; Virgilio Greenfield; Deborah Lynch; Melvin Lemons; Balta Mazariegos; Fareed Stephenson; Stephenie Bills; Zia Elkins; Shannen Michele; Elvis Blanchard; Trevon Casas Benson; Cj Giles; Los Johnson; Eliud Torrez; Sabrina Dorantes; [place]; Stella Pollard Instructions Additional Instructions / Restrictions: 1. Follow-up with services account manager as scheduled for 12/15/2023. Discharge Orders/Prescriptions Prescriptions: New metoprolol tartrate 25 mg tablet 12.5 mg PO BID 30 Days Qty: 30 0RF aspirin 81 mg capsule 81 mg PO DAILY Qty: 30 0RF atorvastatin [Lipitor] 40 mg tablet 40 mg PO DAILY Qty: 90 0RF Continued Eliquis 5 mg tablet 5 mg PO BID Qty: 180 3RF metoprolol tartrate 25 mg tablet 12.5 mg PO BID Qty: 90 0RF Referrals / Follow Up: Pramod Ponce MD [Primary Care Provider] - As Needed Disposition Disposition (needs filled in before D/C Order can be placed): Home, Self Care Charges/Coding Visit Charges Inpatient E&M: 79869 Disch Hosp >30min
[2023-12-07 14:30] VITALS: BP 141/80; PULSE 57; RESP 18; TEMP 36.6; O2SAT 98
[2023-12-07 14:42] VITALS: BMI 27.7
--- NOTE | 2023-12-07 14:55 | CASEMGMT ---
Met with patient to complete JAMES form. JAMES form explained to patient who voiced understanding and signed form. Original form placed in pt?s chart and copy provided to patient. Isadora Webster, Discharge Planning Asst
--- NOTE | 2023-12-07 15:10 | CASEMGMT ---
Patient has order for discharge. RN CM in to discuss needs at discharge, family at bedside. Patient denies needs or help at discharge. Patient had no further questions or concerns.
[2023-12-14 09:15] LABS: Bedside Glucose 130 mg/dL (74-106)
== END 2023-12-07 14:29 | disposition home or self-care (01) ==
LOC: ED 14:47 → PCU 16:07
PROVIDERS: Admitting Provider Student in an Organized Health Care Education/Training Program; Emergency Provider Emergency Medicine; PCP Internal Medicine; Visit Provider Internal Medicine
DX: R47.01 Aphasia (principal); I48.0 Paroxysmal atrial fibrillation; Z86.73 Personal history of transient ischemic attack (TIA), and cerebral infarction without residual deficits; Z79.01 Long term (current) use of anticoagulants; Z79.899 Other long term (current) drug therapy; Z87.891 Personal history of nicotine dependence; R29.90 Unspecified symptoms and signs involving the nervous system; M19.90 Unspecified osteoarthritis, unspecified site
CPT/HCPCS: 36415; 70450; 70496; 70498; 70551; 71045; 80048; 80061; 82962; 84484; 85025; 85610; 85730; 93005; 93306; 97802; 99221; 99285; Q9967; A4216; G0378

== ENCOUNTER 2024-09-13 07:00 | Outpatient (RCR) | payer MEDICARE, OTHER, SELFPAY ==
--- NOTE | 2024-04-29 19:58 | HP.PTEVAL_ITS ---
Patient's Visit Information Visit Information Visit Information: MARC STERLING is a 63 year old M referred to Physical Therapy by Dr. Luciano Licona MD with a diagnosis of CLOSED FRACTURE OF L PROXIMAL HUMERUS & DJD OF L SHOULDER. RTS DOS 04/19/24. Date of Evaluation: 04/26/24 Physical Therapist: Jennifer Knight, PT, Cert MDT Visit Plan Frequency: 2-3x /Week Duration: 8-12 WKS Plan: L UE REHAB PER REVERSE TOTAL SHLD ARTHROPLASTY PROTOCOL PROVIDED (IN WORKROOM) STARTING WITH PHASE I FOR DOS 04/19/24. HEP AND YARDER BOSS INSTRUCTIONS. CP NEEDED. Subjective Subjective: Work/Leisure: RETIRED. Present symptoms: ANTERIOR SHOULDER PAIN. 3RD AND 4TH TIPS OF FINGERS ARE STILL NUMB. DENIES NECK PAIN. Present since: FEB 2024 Pain Scale: Worst - 6/10 Least - 0/10 Currently: 210 Commenced as a result of: SLIPPED AND FELL ON THE ICE AND SHATTERED SHLD Disturbed sleep: YES. SLEEPING IN A RECLINER WITH SLING. Previous history/Previous treatment: SCOPE L SHLD ABOUT 12 YEARS AGO - A LOT OF DEGENERATION. UNABLE TO WORK OVER-HEAD MUCH AT ALL PRIOR TO FALL. This episode: S/P REVERSE TSA 04/19/24 Dizziness: NO Gait: INDEP PMH/Recent major surgery: Chronic anticoagulation Atrial fibrillation with rapid ventricular response - controlled per patient report since ablation about 6 months ago. 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 Abnormal EKG Left carotid bruit Aortic stenosis - leakage Osteoarthritis Rheumatoid Arthritis. Onychomycosis Objective Objective: THIS PATIENT AMBULATES INDEP'LY INTO PT WEARING A SLING ON HIS L UE. HE IS ABLE TO TRANSFER INDEP'LY SIT TO STAND, SIT TO SUPINE AND REVERSE. HE HAS L SHLD EDEMA AND TENDERNESS AND DECREASED LIGHT TOUCH OF THE TIPS OF HIS 3RD AND 4TH FINGERS. AROM OF HIS L ELBOW, FOREARM, WRIST AND HAND IS WFL. PROM OF HIS L SHLD FLEX IS 98 DEG AND ER 30 DEG. TREATED PATIENT WITH GENTLE PROM TODAY INTO FLEXION AND ER MANUALLY. INSTRUCTED PATIENT IN PASSIVE PENDULUMS INTO FLEX/EXT, CW AND CCW MOTIONS. ALSO INSTRUCTED PATIENT IN GENTLE PASSIVE TABLE WALK AWAYS WITHIN PROTOCOL LIMITS AND YARDER BOSS ASSISTED ROM WITHIN PROTOCOL LIMITS. EMPHASIZED NO INTERNAL ROTATION. EMPHASIZED TO KEEP HOME EX'S IN COMFORTABLE ROM AND INTENSITY. PATIENT TOLERATED EVAL/SESSION WELL. Balance/Special Test Scores Quick DASH Score: 45.4525 Goals Goal 1:: PATIENT WILL REPORT 0-3/10 L UE PAIN WITH ADL'S UPON DISCHARGE Goal Time Frame: 8-12 Weeks Goal 2:: INCREASE L UE A/AA/PROM WITHIN PROTOCOL GUIDELINES TO IMPROVE ADL FUNCTION Goal Time Frame: 8-12 Weeks Goal 3:: IMPROVE L UE FUNCTION STRENGTH WITHIN PROTOCOL GUIDELINES. Goal Time Frame: 8-12 Weeks Goal 4:: PATIENT WILL BE ABLE TO RETURN DEMO APPROPRIATE HEP Goal Time Frame: 8-12 Weeks Rehabilitation Potential Physical Therapy Diagnosis: L UE PAIN, NUMBNESS, STIFFNESS AND WEAKNESS. Rehabilitation Potential: Good Anticipated Interventions Patient/Client Instruction: Educate patient on: Condition, Plan of Care and Risk Factors For the Purpose of:: To improve self management Therapeutic Exercise to Include: Strength training, Body mechanics, Postural training, Flexibilty training, Neuromotor development, Passive ROM, Active ROM and Scapular Strength/Stabilization For the Purpose of:: To decrease pain, To increase ROM, To improve muscle performance and motor function, To improve ability to perform ADL's, To increase tolerance to activity/condition/position, To improve performance and independe nce with ADL's, To improve ability of physical actions for home/community/work/leisure, To increase flexibility/ROM and To improve self management Manual Therapy Techniques to Include: Passive ROM For the Purpose of:: To decrease pain, To decrease soft tissue restriction and To increase flexibility/ROM Cryotherapy (ice pack, ice massage): Yes For the Purpose of:: To decrease pain and To decrease swelling/inflammation Text: Thank you for the opportunity to evaluate your patient. For Medicare and Medicare HMO plans, please review the plan of care and approve it. It will need to be FAXED BACK to us at [phone] for Medicare purposes. For Medicare only, by signing this I certify the plan of care. Please let me know if there are questions or concerns regarding this plan of care. Physician Signature: Date:
--- NOTE | 2024-05-29 15:18 | HP.PTREVAL ---
Re-Evaluation Intro: Dr. Luciano Licona MD, It has been my pleasure to treat MARC STERLING over the last 12 visits for CLOSED FRACTURE OF L PROXIMAL HUMERUS & DJD OF L SHOULDER. RTS DOS 04/19/24. Please see the progress note below for an update on the physical therapy plan of care! Subjective Subjective: PATIENT REPORTS SIGNIFICANT INCREASED PAIN/SWELLING AND DECREASED ROM L SHLD YESTERDAY FOR NO APPARENT REASON AND THEN NOTICED A BRUISE AT [employer] THIS MORNING. WENT FLY FISHING YESTERDAY BUT COULD HARDLY DO IT BECAUSE OF THE PAIN THAT WAS ALREADY THERE WHEN HE WOKE UP. HE REPOORTS THIS IS THE SECOND TIME THIS HAS HAPPENED (FIRST TIME WAS ABOUT 3 WKS AGO). PATIENT REPORTS THE ONLY THINGS HE CAN POSSIBLY RELATE THE INCREASED SYMPTOMS TO ARE GROCERY SHOPPING AND HAVING RELATIONS WITH HIS GIRLFRIEND MONDAY BUT NO PAIN AT THE TIME (OTHER TIME WAS AFTER RELATIONS WITH HIS GIRLFRIEND TOO). PATIENT REPORTS HE CONTINUES TO HAVE INCREASED PAIN AND LIMITED RANGE TODAY. HE REPORTS A LOT OF INCREASED PAIN WITH REACHING WITH THE L ARM TODAY COMPARED TO PRIOR TO NEW ONSET OF PAIN. STATES THE NUMBNESS IN HIS FINGER TIPS IS RESOLVING BY THE DAY AND ALMOST COMPLETELY LOCALIZED TO THE 3RD DIGIT BUT STILL JUST A LITTLE IN THE 4TH TIP. PATIENT REPORTS THAT AT THE TIME OF HIS SURGICAL FOLLOW UP 05/23/24, THE DOCTOR TOLD HIM HE WAS RIGHT ON TRACK. ALSO REPORTS THE DOCTOR TOLD HIM NOT TO LIFT MORE THAN A POUND WITH HIS ARM YET BUT HE GOT SORE TRYING A POUND (DID THIS ON HIS OWN) SO HE STOPPED. Objective Objective/Function: PATIENT WAS SEEN TODAY FOR RE-ASSESSMENT OF PROGRESS TOWARD THE SET PT GOALS AND THE NEED FOR FURTHER PHYSICAL THERAPY VS READINESS FOR DISCHARGE. UPON EXAM TODAY: AAROM IN SUPINE: FLEXION - 133 DEG IR 75 DEG AT 60 DEG ABD ER 20 DEG AT 40 DEG ABD C/O ERP WITH ROM TESTING ALL PLANES. PATIENT INDEP'LY DEMO'ING ONLY APPROX 20 TO 30 DEG OF ACTIVE SHLD FLEX FOR THERAPIST WITH C/O A LOT OF PAIN. THIS PT REVIEWED PROTOCOL AND PHYSICIAN ORDERS WITH PATIENT AND RECOMMENDED ICE, REST AND GENTLE ROM AND STRETCHING EX'S FOR THE NEXT 24 HRS TO SEE IF PAIN AND SWELLING SUBSIDE AND ROM IMPROVES. PATIENT IS AGREEABLE AND PREFERS THIS TO PHYSICIAN FOLLOW UP RIGHT AWAY. HE STATES HE FEELS IT WILL GET BETTER LIKE LAST TIME BUT THIS PT EDUCATED HIM ON POSSIBLITY OF MORE EXTENSIVE INJURY AND NEED FOR PHYSICIAN FOLLOW UP. Plan Plan Plan: CONTINUE PT 2'S A WK X 8 WKS FOR A/AA/PROM L UE PER PHYSICIAN ORDER/PROTOCOL IN WORK ROOM. GRADUALLY WORK TOWARDS FULL PASSIVE AND ACTIVE ROM ALL PLANES WITHOUT CAUSING DISCOMFORT LASTING MORE THAN 30 TO 60 MINUTES POST EXERCISE. MH AND CP NEEDED. Balance/Gait/Functional tests Balance/Special Test Scores Quick DASH Score: 40.9075 Goals Goals Goal 1:: PATIENT WILL REPORT 0-3/10 L UE PAIN WITH ADL'S UPON DISCHARGE Goal Time Frame: 8-12 Weeks Goal Progress: Not Progressing Goal 2:: INCREASE L UE A/AA/PROM WITHIN PROTOCOL GUIDELINES TO IMPROVE ADL FUNCTION Goal Time Frame: 8-12 Weeks Goal Progress: Not Progressing Goal 3:: IMPROVE L UE FUNCTION STRENGTH WITHIN PROTOCOL GUIDELINES. Goal Time Frame: 8-12 Weeks Goal Progress: Not Progressing Goal 4:: PATIENT WILL BE ABLE TO RETURN DEMO APPROPRIATE HEP Goal Time Frame: 8-12 Weeks Goal Progress: Progressing Anticipated Interventions Anticipated Interventions Patient/Client Instruction: Educate patient on: Condition, Plan of Care and Risk Factors For the Purpose of:: To improve self management Therapeutic Exercise to Include: Strength training, Body mechanics, Postural training, Flexibilty training, Neuromotor development, Passive ROM, Active ROM and Scapular Strength/Stabilization For the Purpose of:: To decrease pain, To increase ROM, To improve muscle performance and motor function, To improve ability to perform ADL's, To increase tolerance to activity/condition/position, To improve performance and independence with ADL's, To improve ability of physical actions for home/community/work/leisure, To increase flexibility/ROM and To improve self management Manual Therapy Techniques to Include: Passive ROM For the Purpose of:: To decrease pain, To decrease soft tissue restriction and To increase flexibility/ROM Cryotherapy (ice pack, ice massage): Yes For the Purpose of:: To decrease pain and To decrease swelling/inflammation Re-Evaluation Ending Re-evaluation ending: Please do not hesitate to contact me at [phone] by phone or if you have questions or concerns regarding this new plan of care! Sincerely, Jennifer Knight, PT, Cert MDT
--- NOTE | 2024-06-14 07:47 | HP.PTDCSUM ---
Discharge Summary D/C summary: It has been my pleasure to treat MARC STERLING referred by Dr. Luciano Licona MD, with the diagnosis of CLOSED FRACTURE OF L PROXIMAL HUMERUS & DJD OF L SHOULDER. RTS DOS 04/19/24 for a total of 19 visit(s). Discharge Date: Please see the following information for a summary of their discharge status. Subjective Subjective: No pain ,just very weak Plan to see July 04 Pain L SHOULDER: Pain Intensity (Out of 10): 0 Overall Improvement % Improvement: 40 Objective Objective/Function: * Patient will cont to benefit from skilled to improve ROM and progress to strength ,progress is slower than excepted due to tightness and decrease ROM thus goals are appropriate* -PROM shoulder flexion 130 degrees ,Abduction 145 degrees ,ER 90 -AROM shoulder flexion 90 degrees ,abduction 70 degrees with substitution - MMT- peak force : deltoid 0 Goals Goal 1:: PATIENT WILL REPORT 0-3/10 L UE PAIN WITH ADL'S UPON DISCHARGE Goal Progress: Progressing Goal 2:: INCREASE L UE A/AA/PROM WITHIN PROTOCOL GUIDELINES TO IMPROVE ADL FUNCTION Goal Progress: Not Progressing Goal 3:: IMPROVE L UE FUNCTION STRENGTH WITHIN PROTOCOL GUIDELINES. Goal Progress: Not Progressing Goal 4:: PATIENT WILL BE ABLE TO RETURN DEMO APPROPRIATE HEP Goal Progress: Progressing Plan Plan: s/p Reverse TSR Apr 19 FOCUS FULL PASSIVE AND ACTIVE ROM ALL PLANES PROGRESS TO STRENGTHENING PER PROTOCAL ,MANAUAL THERAPY MH AND CP NEEDED. D/C Information d/c sentence: If there are questions or concerns regarding this patient's physical therapy, please feel free to call me at [phone]. Thank you for the referral of this patient. Sincerely, Balta Marquez, PT, Cert MDT, OCS Balance/Gait/Functional tests Balance/Special Test Scores Quick DASH Score: 43.1800 Improvement % Improvement: 40
--- NOTE | 2024-06-14 09:03 | HP.PTREVAL ---
Re-Evaluation Intro: Dr. Luciano Licona MD, It has been my pleasure to treat MARC STERLING over the last 19 visits for CLOSED FRACTURE OF L PROXIMAL HUMERUS & DJD OF L SHOULDER. RTS DOS 04/19/24. Please see the progress note below for an update on the physical therapy plan of care! Subjective Subjective: No pain ,just very weak Plan to see July 04 Objective Objective/Function: * Patient will cont to benefit from skilled to improve ROM and progress to strength ,progress is slower than excepted due to tightness and decrease ROM thus goals are appropriate* -PROM shoulder flexion 130 degrees ,Abduction 145 degrees ,ER 90 -AROM shoulder flexion 90 degrees ,abduction 70 degrees with substitution - MMT- peak force : deltoid 0 Plan Plan Plan: s/p Reverse TSR Apr 19 FOCUS FULL PASSIVE AND ACTIVE ROM ALL PLANES PROGRESS TO STRENGTHENING PER PROTOCAL ,MANAUAL THERAPY MH AND CP NEEDED. Balance/Gait/Functional tests Balance/Special Test Scores Quick DASH Score: 43.1800 Goals Goals Goal 1:: PATIENT WILL REPORT 0-3/10 L UE PAIN WITH ADL'S UPON DISCHARGE Goal Time Frame: 8-12 Weeks Goal Progress: Progressing Goal 2:: INCREASE L UE A/AA/PROM WITHIN PROTOCOL GUIDELINES TO IMPROVE ADL FUNCTION Goal Time Frame: 8-12 Weeks Goal Progress: Not Progressing Goal 3:: IMPROVE L UE FUNCTION STRENGTH WITHIN PROTOCOL GUIDELINES. Goal Time Frame: 8-12 Weeks Goal Progress: Not Progressing Goal 4:: PATIENT WILL BE ABLE TO RETURN DEMO APPROPRIATE HEP Goal Time Frame: 8-12 Weeks Goal Progress: Progressing Anticipated Interventions Anticipated Interventions Patient/Client Instruction: Educate patient on: Condition, Plan of Care and Risk Factors For the Purpose of:: To improve self management Therapeutic Exercise to Include: Strength training, Body mechanics, Postural training, Flexibilty training, Neuromotor development, Passive ROM, Active ROM and Scapular Strength/Stabilization For the Purpose of:: To decrease pain, To increase ROM, To improve muscle performance and motor function, To improve ability to perform ADL's, To increase tolerance to activity/condition/position, To improve performance and independence with ADL's, To improve ability of physical actions for home/community/work/leisure, To increase flexibility/ROM and To improve self management Manual Therapy Techniques to Include: Passive ROM For the Purpose of:: To decrease pain, To decrease soft tissue restriction and To increase flexibility/ROM Cryotherapy (ice pack, ice massage): Yes For the Purpose of:: To decrease pain and To decrease swelling/inflammation Re-Evaluation Ending Re-evaluation ending: Please do not hesitate to contact me at [phone] by phone or if you have questions or concerns regarding this new plan of care! Sincerely, Balta Marquez, PT, Cert MDT, OCS
--- NOTE | 2024-07-31 11:45 | HP.PTREVAL ---
Re-Evaluation Intro: Dr. Luciano Licona MD, It has been my pleasure to treat MARC STERLING over the last 31 visits for CLOSED FRACTURE OF L PROXIMAL HUMERUS & DJD OF L SHOULDER. RTS DOS 04/19/24. Please see the progress note below for an update on the physical therapy plan of care! Subjective Subjective: I'M GETTING STRONGER EVERY DAY. PATIENT REPORTS HE IS SLOWLY USING MORE WEIGHTS AND HOLDING THE BALL UP ON THE WALL LONGER. HE REPORTS THE THERAPIST STRETCHING HIS ARM IS REALLY HELPING AND HE IS JUST UNABLE TO DO IT ON HIS OWN. PATIENT REPORTS HE GETS SORE HE IS GETTING MORE ACTIVE BUT HE IS GETTING LESS PAIN AND IT DOESN'T KEEP HIM UP AT NIGHT MUCH NOW. Objective Objective/Function: PATIENT WAS SEEN TODAY FOR RE-ASSESSMENT OF PROGRESS TOWARD THE SET PT GOALS AND THE NEED FOR FURTHER PHYSICAL THERAPY VS READINESS FOR DISCHARGE. THIS PATIENT IS MAKING SLOW PROGRESS AND IS A GOOD CANDIDATE TO CONTINUE PT. PATIENT IS AGREEABLE. UPON EXAM TODAY: STANDING AROM: FLEXION - 132 DEG ABD - 83 DEG PROM IN SUPINE: FLEXION - 149 DEG ABD - 115 DEG IR 85 DEG AT 70 DEG ABD ER 50 DEG AT 70 DEG ABD C/O ERP WITH PROM TESTING ALL PLANES. STRAIN GAUGE STRENGTH TESTING IN PEAK FORCE: SHLD FLEX - L 16.9, R 39.4 LBS SHLD ABD - L 19.3, R 22.3 LBS SHLD IR - L 9.5, R 27 LBS SHLD ER - L 7.2, R 20.9 LBS ELBOW FLEX - L 40.1, R 59.4 LBS ELBOW EXT - L 16.0, R 36.2 LBS R FORESTER SILVICULTURE 45 LBS, L FORESTER SILVICULTURE 23 LBS Plan Plan Plan: s/p Reverse TSR Apr 19 CONT. PT 2X'S/WK X 12-14 VISITS: FOCUS FULL PASSIVE AND ACTIVE ROM ALL PLANES PROGRESS TO STRENGTHENING PER PROTOCAL ,MANAUAL THERAPY, MH AND CP NEEDED. Balance/Gait/Functional tests Balance/Special Test Scores Quick DASH Score: 43.1800 Goals Goals Goal 1:: PATIENT WILL REPORT 0-3/10 L UE PAIN WITH ADL'S UPON DISCHARGE Goal Time Frame: 8-12 Weeks Goal Progress: Progressing Goal 2:: INCREASE L UE A/AA/PROM WITHIN PROTOCOL GUIDELINES TO IMPROVE ADL FUNCTION Goal Time Frame: 8-12 Weeks Goal Progress: Progressing Goal 3:: IMPROVE L UE FUNCTION STRENGTH WITHIN PROTOCOL GUIDELINES. Goal Time Frame: 8-12 Weeks Goal Progress: Progressing Goal 4:: PATIENT WILL BE ABLE TO RETURN DEMO APPROPRIATE HEP Goal Time Frame: 8-12 Weeks Goal Progress: Progressing Anticipated Interventions Anticipated Interventions Patient/Client Instruction: Educate patient on: Condition, Plan of Care and Risk Factors For the Purpose of:: To improve self management Therapeutic Exercise to Include: Strength training, Body mechanics, Postural training, Flexibilty training, Neuromotor development, Passive ROM, Active ROM and Scapular Strength/Stabilization For the Purpose of:: To decrease pain, To increase ROM, To improve muscle performance and motor function, To improve ability to perform ADL's, To increase tolerance to activity/condition/position, To improve performance and independence with ADL's, To improve ability of physical actions for home/community/work/leisure, To increase flexibility/ROM and To improve self management Manual Therapy Techniques to Include: Passive ROM For the Purpose of:: To decrease pain, To decrease soft tissue restriction and To increase flexibility/ROM Cryotherapy (ice pack, ice massage): Yes For the Purpose of:: To decrease pain and To decrease swelling/inflammation Re-Evaluation Ending Re-evaluation ending: Please do not hesitate to contact me at [phone] by phone or if you have questions or concerns regarding this new plan of care! Sincerely, Jennifer Knight, PT, Cert MDT
--- NOTE | 2024-09-13 08:15 | HP.PTDCSUM ---
Discharge Summary D/C summary: It has been my pleasure to treat MARC STERLING referred by Dr. Luciano Licona MD, with the diagnosis of CLOSED FRACTURE OF L PROXIMAL HUMERUS & DJD OF L SHOULDER. RTS DOS 04/19/24 for a total of 40 visit(s). Discharge Date: Please see the following information for a summary of their discharge status. Subjective Subjective: PATIENT REPORTS HE IS DOING GOOD. IT IS SO NICE TO BE ABLE TO RIDE MY BIKE WITHOUT PAIN. PATIENT STATES I'M PAST THE PAIN STAGE. HE REPORTS THE DOCTOR TOLD HIM TO EXPECT 18 MONTHS BEFORE HE WILL BE AT FULL STRENGTH. HE STATES THE DOCTOR OFFICIALLY RELASED HIM. PATIENT DENIES ANY QUESTIONS OR CONCERNS AT THIS POINT AND FEELS READY FOR DISCHARGE FROM PT TOO. Pain L SHOULDER: Pain Intensity (Out of 10): 0 Overall Improvement % Improvement: 80 Objective Objective/Function: PATIENT WAS SEEN TODAY FOR RE-ASSESSMENT OF PROGRESS TOWARD THE SET PT GOALS AND THE NEED FOR FURTHER PHYSICAL THERAPY VS READINESS FOR DISCHARGE. PATIENT IS QUITE PLEASED WITH HIS PROGRESS AND REPORTS ANOTHER 30% PROGRESS SINCE LAST RE-CHECK. HE IS NOW INDEP WITH GYM AND HOME STRETCHING AND STRENGTHENING PROGRAMS. HE IS APPROPRIATE FOR AND AGREEABLE TO DISCHARGE. UPON EXAM TODAY: STANDING AROM: FLEXION - 146 DEG ABD - 138 DEG PROM IN SUPINE: FLEXION - 157 DEG ABD - 146 DEG IR 85 DEG AT 90 DEG ABD ER 55 DEG AT 90 DEG ABD C/O MILD ERP WITH PROM TESTING. STARTED STRAIN GUAGE STRENGTH TESTING AND TESTING DID NOT SEEM ACCURATE THEN REALIZED LAST TIME MEASUREMENTS WERE TAKEN HE HAD NOT WORKED OUT PRIOR. ON THIS DATE HE HAD A FULL THERAPY SESSION AND HIS ARM IS NOW FATIGUED AND STRENGTH TESTING IS NOT ACCUREATE. TODAYS EX SESSION INCLUDED THE FOLLOWING: UBE: L5 x2 min ea F/B to increase blood flow and UE endurance (monitored). Pulleys into Flex and Scap: x20 ea. (25) Left OH Press: 12.5# 3x8. (29) Fwd Fly: 70# 3x8 - arms 3. (29) Rear Delt: 55# 3x8 - arms 8. (10) Downward Fly: 30# 3x8. (10) Rear Downward Cross: 20# 3x12. S/L Left Shld Abduction: 3# 3x12. 1a. Seated 90/90 Left Shld IR, Blue Tube 3x8. 1b. Seated 90/90 Left Shld ER, 2# 3x8. Goals Goal 1:: PATIENT WILL REPORT 0-3/10 L UE PAIN WITH ADL'S UPON DISCHARGE Goal Progress: Goal Met Goal 2:: INCREASE L UE A/AA/PROM WITHIN PROTOCOL GUIDELINES TO IMPROVE ADL FUNCTION Goal Progress: Progressing Goal 3:: IMPROVE L UE FUNCTION STRENGTH WITHIN PROTOCOL GUIDELINES. Goal Progress: Progressing Goal 4:: PATIENT WILL BE ABLE TO RETURN DEMO APPROPRIATE HEP Goal Progress: Goal Met Plan Plan: D/C D/C Information d/c sentence: If there are questions or concerns regarding this patient's physical therapy, please feel free to call me at [phone]. Thank you for the referral of this patient. Sincerely, Jennifer Knight, PT, Cert MDT Balance/Gait/Functional tests Balance/Special Test Scores Quick DASH Score: 9.0900 Improvement % Improvement: 80
== END 2024-09-13 19:00 | disposition home or self-care (01) ==
LOC: PT 07:00
PROVIDERS: PCP Internal Medicine; Referring Provider Orthopaedic Surgery; Visit Provider Orthopaedic Surgery
DX: S42.202D Unspecified fracture of upper end of left humerus, subsequent encounter for fracture with routine healing (principal); M19.012 Primary osteoarthritis, left shoulder
CPT/HCPCS: 97110; 97140; 97162; 97530

== ENCOUNTER → 2024-12-23 | Outpatient (CLI) | payer MEDICARE, OTHER, SELFPAY ==
[2024-12-23 10:55] LABS: Hematocrit 39.2 % (40-54); Hemoglobin 13.4 g/dL (13.0-16.5); Immature Granulocytes Count 0.030 X10^3/uL (0.0-0.0); Mean Corp Hgb Conc 34.2 g/dL (32-36); Mean Corpuscular Volume 85.4 fL (80-94); Mean Platelet Vol. 10.1 fl (6.2-12.0); NRBC Flagged by Analyzer 0 % (0-5); Platelet Count 202 K/mm3 (150-450); RBC Distribution Width CV 13.2 % (11.6-14.6); RBC Distribution Width SD 40.9 fl (35.1-43.9); Red Blood Count 4.59 M/mm3 (4.6-6.2); White Blood Count 8.7 K/mm3 (4.4-11.0)
[2024-12-23 11:57] LABS: AST(SGOT) 18 U/L (<=37); Alanine Aminotransfer ALT/SGPT 17 U/L (<=46); Albumin, Serum 4.0 g/dL (3.4-4.8); Alkaline Phosphatase 85 U/L (40-129); Anion Gap 9 (5-15); BUN 19 mg/dL (4-19); BUN/Creat Ratio 17.0 RATIO (10-20); Calcium,Total 9.2 mg/dL (7.6-11.0); Carbon Dioxide 25.2 mmol/L (21.0-32.0); Chloride 105 mmol/L (98-108); Cholesterol 181 mg/dL (<=200); Globulin 2.4 g/dL (2.2-4.2); Glucose 100 mg/dL (70-99); Low Density Lipoprotein Calc. 81 mg/dL; PSA,Total - Annual Screen 2.22 ng/mL (0.02-4.00); Potassium 4.4 mmol/L (3.3-5.1); Triglycerides 150 mg/dL; Uric Acid 6.0 mg/dL (3.5-7.2); Very Low Density Lipoprotein 30 mg/dL (5-40); cholesterol:hdl ratio screen 2.57
== END | disposition home or self-care (01) ==
PROVIDERS: PCP Internal Medicine; Referring Provider Internal Medicine; Visit Provider Internal Medicine
DX: I35.0 Nonrheumatic aortic (valve) stenosis (principal); E78.5 Hyperlipidemia, unspecified; Z12.5 Encounter for screening for malignant neoplasm of prostate; M19.90 Unspecified osteoarthritis, unspecified site
CPT/HCPCS: 36415; 80053; 80061; 84153; 84550; 85025; G0103

== ENCOUNTER → 2025-03-13 | Outpatient (CLI) | payer MEDICARE, OTHER, SELFPAY ==
[2025-03-13 12:13] LABS: Cholesterol 206 mg/dL (<=200); Low Density Lipoprotein Calc. 116 mg/dL; Triglycerides 154 mg/dL; Very Low Density Lipoprotein 31 mg/dL (5-40); cholesterol:hdl ratio screen 3.29
== END | disposition home or self-care (01) ==
LOC: LAB 09:30
PROVIDERS: PCP Internal Medicine
DX: E78.2 Mixed hyperlipidemia (principal)
CPT/HCPCS: 36415; 80061